=== PATIENT | male | born 1990 | race Caucasian/White ===

== ENCOUNTER 2016-12-10 15:54 | Emergency (ER) | payer MEDICAID ==
[~2016-12-10] VITALS: Ht 175.3 cm; Wt 72.6 kg
[~2016-12-10 15:54] MED LIST: ALBUTEROL2 PUFFS/17 IN; AMOXICILLIN 25250 MG PO; AMOXICOT250 MG PO; APAP/BUTALBITAL1 TA1 PO; BENTYL10 M1 PO; CLINDAMYCIN300 MG PO; IBU-8800 MG PO; IBUPROFEN400 MG PO; KEFLEX 500MG.500 MG PO; MEDROL 4MG. DOSE4 MG PO; NOMEDS *; NOMEDS XX; NORCO 325 MG-51 TAB PO; PHENERGAN 25MG.25 M1 PO; PHENERGAN25 M3 PO; PREDNISONE 20MG20 MG PO; PRILOSEC40 MG PO; SEPTRA DS 800 M1 TAB PO; TESSALON PERLE100 MG PO; ULTRAM50 MG PO; VIBRAMYCIN 100100 MG PO; VICODIN 5/500 T1 TAB PO; VOLTAREN75 MG PO; ZOFRAN ODT4 MG PO; Zofran4 MG PO
--- OUTSIDE RECORDS SUMMARY | 2016-12-10 16:05 | External Medical Summary Rpt ---
Author Author , [facility] Organization [facility] Address Unknown Phone [email or web address] Care Team Providers Care Final Inspector Shuttle Name Role Phone GUTIERREZ BRO, GUTIERREZ Unavailable Unavailable BRO GUTIERREZ BRO, GUTIERREZ Unavailable Unavailable BRO BEINEKE SUE, BEINEKE Unavailable Unavailable SUE LIAO ALL, LIAO ALL Unavailable Unavailable RADHA DREW T, Unavailable Unavailable RADHA DREW T [facility] Unavailable Unavailable [place], [facility] DEVYN Hua, DEVYN Patel Unavailable Unavailable G DEVYN Hua, DEVYN J Unavailable Unavailable G Amanda SHEPARD, DEVYN, Unavailable Unavailable Amanda Hua CROWJOSE CRI, CROWDY Unavailable Unavailable CRI ALEXA MICAH, Unavailable Unavailable ALEXA MICAH ALEXA MICAH, Unavailable Unavailable ALEXA MICAH ALEXA, BO, Unavailable Unavailable ALEXA, BO [facility], Unavailable Unavailable [facility], Unavailable Unavailable [facility] [place] [facility] [place] KYLE SINDY, KYLE SINDY Unavailable Unavailable [facility], [facility] JR KIRK CHAKRABORTY, Unavailable Unavailable JR KIRK CHARKABORTY, MARS Unavailable Unavailable GALLO MARS GALLO, MARS Unavailable Unavailable GALLO L[facility]SET[facility] TERRAZAS, Unavailable Unavailable [facility] Un[facility], [facility], [facility], [facility] YANG RAN, YANG Unavailable Unavailable RAN YANG RAN, YANG Unavailable Unavailable RAN Amanda Terrazas MD, Unavailable Unavailable Amanda MIRELES SCO, ALINE SCO Unavailable Unavailable AISLINN MIRELES, ALINE, Unavailable Unavailable AISLINN ASHBY, Unavailable Unavailable KASANDRA ASHBY, Unavailable Unavailable PILI ERICKSON Unavailable Unavailable PILI BOUDREAUX JR, WILLIAM Unavailable Unavailable NAYLA Noguera JR, WILLIAM F MOHAMED ALFARIS MD, Unavailable Unavailable KEYON CASH, Unavailable Unavailable SANDEE CASH MULBERRY SINDY, Unavailable Unavailable MULBERRY SINDY SAMPSON R H, Unavailable Unavailable SAMPSON R H SONIA NOVA, Unavailable Unavailable [facility], Unavailable [facility]available [facility], [facility] PETTEY JAM, PETTEY Unavailable Unavailable JAM SCHULSTAD AIYANA, Unavailable Unavailable SCHULSTAD AIYANA SOKAN, SUPRIYA O, Unavailable Unavailable SOKAN, SUPRIYA O [facility] Unavailable Unavailable EMER[facility]Y PH[facility], [facility] ANGELICA JONNATHAN, ANGELICA Unavailable Unavailable JONNATHAN YVONNE JOHNSON, YVONNE Unavailable Unavailable ALEX Reyes MD, Unavailable Unavailable Anjum Reyes MD [facility], Unavailable Unavailable [facility] Unavailable Unavailable Sonia Orozco Unavailable Unavailable Sonia NORRIS MD, III, MD [facility], [facility] Unavailable Unavailable Purpose Continuity of Care Document - 09-03-2008 through 2016 Problems Code Diagnosis DOS Provider Status Z681 BODY MASS 10-11-2016 DEPT FOR INDEX BMI PUBLIC HLTH 19 OR LESS ADULT J101 FLU D/T OTH 07-18-2015 [facility] VIRUS OTH RESP MANIFESTATI ONS J0110 ACUTE 07-13-2015 [facility] FRONTAL [facility] SINUSITIS UNSPECIFIED R300 DYSURIA 07-13-2015 [facility] [id number] COMP 05-12-2015 [facility] REATTACHED [facility] PART UPPER EXTREMITY UNS SIDE J329 CHRONIC 03-30-2015 [facility] SINUSITIS [facility] UNSPECIFIED V5419 AFTERCARE 12-24-2014 [facility] FRACTURE OTHER BONE V5489 OTHER 12-24-2014 [place] [facility] AFTERCARE 92754 CLOSED 12-10-2014 [facility] METACARPAL [facility]ATION BONE SITE UNSPECIFIED V571 OTHER 11-19-2014 [place] [facility] THERAPY 58712 OPEN 11-11-2014 [facility] DISTAL PHALANX OR PHALANGES HAND 8830 OPEN WOUND 11-08-2014 [facility] FINGER [facility] WITHOUT MENTION COMPLICATIO N 99123 CLOS 11-06-2014 [place] [facility] MID/PROX[facility]A [facility] L PHALANX/PHA LANG HAND 37811 CLOSED 11-06-2014 [facility] MED[facility] DISTAL IMAGING ASS PHALANX OR PHALANGES HAND 8860 TRAUMATIC 11-06-2014 [facility] PHYSICIANS, FINGER PLLC WITHOUT MENTION COMP 8861 TRAUMATIC 11-06-2014 [facility] OF OTHER INC FINGER COMPLICATED 05426 PAIN IN 11-04-2014 [facility] SHOULDER REGION 7937 NONSPC ABN 11-04-2014 [facility] EXM MUSCULSKELT L SYS 03355 OT NONSPC 11-04-2014 [place] [facility] FINDNG SERV RAD&OTH EXM [facility]OUNDATION BODY STRUCTURE 8406 SUPRASPINAT 11-04-2014 [facility] SPRAIN SERV AND STRAIN FOUNDATION 8407 SUPERIOR 11-04-2014 [facility] LABRUM LESIONS 8408 SPRAIN&STRA 11-04-2014 [facility] IN OT SPEC SERV SITES [facility] SHOULDER&UP PER ARM 58308 OTHER 10-05-2014 [place] [facility] DISORDERS SERV OF BONE AND FOUNDATION CARTILAGE OTHER 73036 ABDOMINAL 03-31-2014 [place] [facility], [facility]ICAL UNSPECIFIED IMAGING ASS SITE 8489 UNSPECIFIED 03-09-2014 [facility] SITE OF ASSOCIATES SPRAIN AND STRAIN 88044 ABDOMINAL 03-08-2014 [facility] OTHER N EMERGENCY SPECIFIED PHYS SITE 8488 OTHER 03-08-2014 [facility] SPECIFIED N EMERGENCY SITES OF PHYS SPRAINS AND STRAINS E9288 OTHER 03-08-2014 [facility] ACCIDENT N EMERGENCY PHYS 4739 UNSPECIFIED 02-15-2014 [facility] SINUSITIS N EMERGENCY PHYS 490 BRONCHITIS 02-15-2014 [facility] NOT N EMERGENCY SPECIFIED PHYS ACUTE OR CHRONIC 53889 SHORTNESS 02-15-2014 [facility] 34324 WHEEZING 02-15-2014 [facility] N EMERGENCY PHYS 5224 ACUTE 01-06-2014 [facility] APICAL N EMERGENCY PERIODONTIT PHYS IS OF PULPAL ORIGIN 5259 UNSPECIFIED 01-06-2014 [facility] DISORDER N EMERGENCY TEETH&SUPPO PHYS RTING STRUCTURES 95999 JAW PAIN 01-06-2014 [facility] N EMERGENCY PHYS 7242 LUMBAGO 12-09-2013 DEVYN Hua 2243 BENIGN 10-28-2013 [facility] NEOPLASM OF GRE CONJUNCTIVA 79424 UNSPECIFIED 09-30-2013 [facility] SUBJECTIVE GRE VISUAL DISTURBANCE 99810 OTHER 09-30-2013 [facility] VISUAL GRE DISTORTIONS AND ENTOPTIC PHENOMENA 24274 OTHER 09-30-2013 K[facility] VITREOUS GRE OPACITIES 5409 ACUTE 04-28-2014 [facility] WITHOUT INC MENTION PERITONITIS 541 APPENDICITI 09-07-2013 ALEXEIMADDIE AIYANA Lisa UNQUALIFIED 28847 OTHER 09-07-2013 ALEXA ASCITES MICAH 5400 ACUTE 09-06-2013 CELIA RAN APPENDICITI S WITH GENERALIZED PERITONITIS 20105 ABDOMINAL 09-06-2013 MARS GALLO PAIN RIGHT LOWER QUADRANT 5589 OTH&UNSPEC 08-31-2013 GUTIERREZ BRO NONINFECTIO US GASTROENTER ITIS&COLITI S 98339 ABDOMINAL 08-31-2013 GUTIERREZ BRO PAIN, EPIGASTRIC 8470 NECK SPRAIN 05-17-2013 [facility] AND STRAIN [facility] 8500 CONCUSSION 05-17-2013 [facility] WITH NO [facility] LOSS OF INC [place]OUSNE SS 9221 CONTUSION 05-17-2013 [facility] OF CHEST [facility] WALL INC 305.1 305.1 12-22-2012 [place] TOBACCO USE [facility] 530.81 530.81 12-22-2012 [place] ESOPHAGEAL [facility] REFLUX [facility] 682.2 682.2 12-22-2012 [place] CELLULITIS [facility] OF TRUNK [facility] 682.3 682.3 11-11-2012 [place] CELLULITIS [facility] 709.09 709.09 11-11-2012 [place] OTHER [facility] DYSCHROMIA [facility] 787.03 787.03 10-20-2012 [place] VOMITING [facility] 787.91 787.91 08-04-2012 [place] DIARRHEA [facility] 789.06 789.06 08-04-2012 [place] ABDOMINAL [facility], [facility] EPIGASTRIC 13656 DYSFUNCTION 06-14-2009 ROHINI OF SONIA Nielsen EUSTACHIAN TUBE 65536 SIMPLE/UNSP 05-24-2009 ROHINI ECIFIED SONIA Nielsen CHRONIC SEROUS OTITIS MEDIA 80594 BRAWEVIE 04-13-2009 KANIKA, SCLERITIS PILI 1903 MALIGNANT 03-23-2009 KANIKA NEOPLASM OF PILI CONJUNCTIVA 7850 UNSPECIFIED 03-16-2009 [facility] TACHYCARDIA [facility]OUND[facility] 51776 OTHER AND 03-07-2009 [facility] UNSPECIFIED [facility]OCIATES CONJUNCTIVI TIS 4660 ACUTE 02-16-2009 [facility] BRONCHITIS [facility] 5110 PLEURISY 02-16-2009 KASANDR[facility] WITHOUT EMERGENCY MENTION SERVICES EFFUS/CURRE ASSOCIATES NT TB 7862 COUGH 02-16-2009 [facility] 64023 PAINFUL 01-31-2009 [place] [facility] Allergies, Adverse Reactions, Alerts Type Drug Allergy Adverse Reaction to Substance Substance Reaction Severity No Known Allergies - Unknown Mild Nka Trimethoprim NA-NAUSEA/VOMITING Unknown Sulfamethoxazole NA-NAUSEA/VOMITING Unknown Medications Na ND Rx Da Fi Fi Am Da Di Ph RX Ph St me C No te ll ll ou ys ag ar # ys at rm s nt no ma ic us Or Da si cy ia de te s n re d DI 00 10 0 No PH 40 -2 EN 92 5- Lo HY [address] 03 13 er AM 1 IN Ac E ti 50 ve MG /M L SY RN G SO 00 10 0 No DI 40 -2 UM 97 5- Lo 98 20 ng CH 30 13 er LO 9 RI Ac DE ti ve 0. 9% SO OLLIE TI ON KE 00 10 0 No TO 40 -2 RO 93 5- Lo LA 79 20 ng C 50 13 er 30 1 Ac MG ti /M ve L AL ON 00 10 0 No DA 64 -2 NS 16 5- Lo ET 08 20 ng RO 02 13 er N 5 HC Ac L ti 4 ve MG /2 ML AL De 00 10 0 No xa 51 -2 me 74 5- Lo th 90 20 ng as 12 13 er on 5 e Ac 4M ti G/ ve Ml Sd v LI 00 08 0 No DO 40 -1 CA 93 2- Lo IN 17 20 ng E 80 13 er 1% 1 -E Ac PI ti ve 1: 10 0, 00 0 CE 62 07 0 No PH 75 -0 AL 60 2- Lo EX 29 20 ng IN 48 13 er 8 50 Ac 0 ti MG ve CA PS UL E LI 63 07 0 No DO 32 -0 CA 30 2- Lo IN 20 20 ng E 11 13 er HC 0 L Ac 1% ti ve AL SAGASTUME 51 07 0 No LF 07 -0 AM 90 2- Lo ET 12 20 ng HO 82 13 er XA 0 ZO Ac LE ti -T ve MP DS TA BL ET AK 51 06 0 No OM 07 -1 ET 90 0- Lo KIRBY 89 20 ng ZI 52 13 er NE 0 Ac 25 ti ve MG TA BL ET AK 00 03 0 No OM 64 -2 ET 11 5- Lo KIRBY 49 20 ng ZI 53 13 er NE 5 Ac 25 ti ve MG /M L AM PU L SO 00 03 0 No DI 40 -2 UM 97 5- Lo 98 20 ng CH 30 13 er LO 9 RI Ac DE ti ve 0. 9% SO OLLIE TI ON ON 00 03 0 No DA 64 -2 NS 16 5- Lo ET 08 20 ng RO 02 13 er N 5 HC Ac L ti 4 ve MG /2 ML AL Sa 63 03 0 No li 80 -2 ne 70 5- Lo 10 20 ng Fl 07 13 er us 5 h Ac 10 ti ML ve Sy ri ng e 00 01 02 00 60 30 EA 16 LI Ac 09 -2 -[address] 09 VA ti 51 5- 1- 00 SI 48 S ve 29 20 20 DE IR 00 10 10 AK 6 PH LI AR S MA C CY OF CY NT HI AN A 00 01 02 00 30 30 EA 16 LI Ac 00 -2 -[address] 09 VA ti 60 5- 1- 00 SI 49 S ve 11 20 20 DE IR 73 10 10 AK 1 PH LI AR S MA C CY OF CY NT HI AN A 59 01 02 00 8. 15 EA 16 LI Ac 31 -2 -[address] 09 VA ti 00 5- 1- 0 SI 47 S ve 57 20 20 DE IR 92 10 10 AK 0 PH LI AR S MA C CY OF CY NT HI AN A PA 00 01 02 00 2. 10 EA 16 LI Ac TA 06 -2 -[address] 09 VA ti DA 50 5- 1- 0 SI 51 S ve Y 27 20 20 DE IR 0. 22 10 10 AK 2% 5 PH LI AR S EY MA C E CY DR OP OF S CY NT HI AN A NA 00 01 02 00 17 17 EA 16 LI Ac SO 08 -2 -[address] 09 VA ti NE 51 5- 1- 00 SI 50 S ve X 28 20 20 DE IR 50 80 10 10 AK 1 PH LI MC AR S G MA C NA CY SA L OF SP CY RA NT Y HI AN A 68 01 01 00 20 10 EA 15 PA Ac 82 -1 -[address] 93 RE ti 00 2- 8- 00 SI 41 LL ve 06 20 20 DE 30 10 10 WI 9 PH LL AR IA MA M CY M OF CY NT HI AN A 60 12 01 00 18 5 EA 15 NO Ac 25 -2 -[address] 76 RF ti 80 9- 4- 00 SI 16 LE ve 23 20 20 0 DE ET 91 09 10 R 6 PH AR HE MA NR CY Y OF CY NT HI AN A AM 00 12 01 00 28 14 EA 15 NO Ac OX 09 -2 -[address] 76 RF ti -C 32 9- 4- 00 SI 15 LE ve LA 27 20 20 DE ET V 53 09 10 R 87 4 PH 5- AR HE 12 MA NR 5 CY Y MG OF TA CY BL NT ET HI AN A 00 11 11 00 12 3 EA 14 SO Ac 40 -0 -[address] 96 KA ti 62 3- 9- 00 SI 91 N ve 04 20 20 DE BA 11 09 09 BA 0 PH TU AR ND MA E CY O OF CY NT HI AN A SAGASTUME 24 10 11 00 15 7 EA 14 CO Ac LF 20 -2 -[address] 86 OP ti AC 80 6- 5- 00 SI 17 ER ve ET 67 20 20 DE AM 00 09 09 KRISTINE ID 4 PH HN E AR G 10 MA % CY EY E OF DR CY OP NT S HI AN A ME 00 10 10 00 21 6 EA 14 GA Ac TH 78 -0 -[address] 59 IN ti YL 15 7- 2- 00 SI 70 EY ve AK 02 20 20 DE ED 20 09 09 IA NI 7 PH CH SO AR AE LO MA L NE CY S 4 OF MG CY NT DO HI SE AN PK A DO 53 10 10 00 14 7 EA 14 GA Ac XY 48 -0 -[address] 59 IN ti CY 90 7- 2- 00 SI 69 EY ve CL 11 20 20 DE IN 90 09 09 IA E 5 PH CH HY AR AE CL MA L AT CY S E 10 OF 0 CY MG NT HI CA AN P A 00 10 10 00 9. 3 EA 14 GA Ac 25 -0 -[address] 59 IN ti 83 7- 2- 0 SI 68 EY ve 65 20 20 DE 40 09 09 IA 1 PH CH AR AE MA L CY S OF CY NT HI AN A IB 53 09 10 00 15 5 EA 14 SO Ac UP 74 -2 -[address] 34 KA ti RO 60 1- 8- 00 SI 85 N ve FE 46 20 20 DE BA N 60 09 09 BA 80 5 PH TU 0 AR ND MG MA E CY O TA BL OF ET CY NT HI AN A Immunization Name Date Rout CVX Reac Dose Comm Prov Is Faci e tion ent ider Refu lity Give sed n TDAP 06-2 115 ELIZA No ELIZA 7-20 FRANK FRANK VACC 15 MEM [facility] INE 7 HOSP HOSP YRS/ INC INC > IM Vital Signs 03-06-2013 13:02 Name Value Interpretat Reference Comment ion Range Body 98.3 [degF] Temperature BP 61 mm[Hg] Diastolic BP Systolic 109 mm[Hg] Heart 76 /min Rate/Pulse O2% 100 % Respiratory 20 /min Rate 03-06-2013 12:15 Name Value Interpretat Reference Comment ion Range BP 67 mm[Hg] Diastolic BP Systolic 124 mm[Hg] Heart 76 /min Rate/Pulse O2% 100 % Respiratory 20 /min Rate 12-22-2012 13:17 Name Value Interpretat Reference Comment ion Range Body 99 [degF] Temperature BP 77 mm[Hg] Diastolic BP Systolic 117 mm[Hg] Heart 128 /min Rate/Pulse O2% 98 % Respiratory 18 /min Rate 12-22-2012 13:00 Name Value Interpretat Reference Comment ion Range BP 64 mm[Hg] Diastolic BP Systolic 122 mm[Hg] Heart 120 /min Rate/Pulse O2% 98 % Respiratory 18 /min Rate 11-11-2012 02:32 Name Value Interpretat Reference Comment ion Range BP 78 mm[Hg] Diastolic BP Systolic 112 mm[Hg] Heart 83 /min Rate/Pulse O2% 99 % Respiratory 20 /min Rate 10-20-2012 18:50 Name Value Interpretat Reference Comment ion Range Body 99.6 [degF] Temperature BP 70 mm[Hg] Diastolic BP Systolic 105 mm[Hg] Heart 76 /min Rate/Pulse O2% 98 % Respiratory 18 /min Rate 10-20-2012 18:49 Name Value Interpretat Reference Comment ion Range Body 99.6 [degF] Temperature BP 70 mm[Hg] Diastolic BP Systolic 105 mm[Hg] Heart 76 /min Rate/Pulse O2% 98 % Respiratory 18 /min Rate 08-04-2012 23:37 Name Value Interpretat Reference Comment ion Range BP 76 mm[Hg] Diastolic BP Systolic 124 mm[Hg] Heart 74 /min Rate/Pulse O2% 98 % Respiratory 16 /min Rate 08-04-2012 22:01 Name Value Interpretat Reference Comment ion Range Body 98.8 [degF] Temperature BP 85 mm[Hg] Diastolic BP Systolic 146 mm[Hg] Heart 92 /min Rate/Pulse O2% 98 % Respiratory 16 /min Rate Results Labs Lab Lab Date Result Refere Interp Status Commen Order Detail nces retati t Range on URINALYSIS/COMPLETE (08-04-2012 21:50) URINE 03-25-2 YELLOW YELLOW complet COLOR 013 ed 21:50 URINE 25-2 CLEAR CLEAR complet APPEARA 013 ed NCE 21:50 URINE 25-2 NEGATIV NEG complet GLUCOSE 013 E ed - 21:50 DIPSTIC K URINE 0325-2 NEGATIV NEG complet BILIRUB 013 E ed IN - 21:50 DIPSTIC K URINE -25-2 NEGATIV NEG complet KETONE 013 E mg/dL ed 21:50 URINE 25-2 Greater 1.005-1 complet SPECIFI 013 than .030 ed C 21:50 or GRAVITY equal to 1.030 URINE 25-2 NEGATIV NEG complet BLOOD 013 E ed 21:50 URINE 25-2 6.0 UNK 5.0-8.5 complet PH 013 ed 21:50 URINE 25-2 NEGATIV NEG complet PROTEIN 013 E mg/dL ed - 21:50 DIPSTIC K URINE 25-2 0.2 NEG complet UROBILI 013 E.U./dL ed NOGEN - 21:50 DIPSTIC K URINE 25-2 NEGATIV NEG complet NITRATE 013 E ed - 21:50 DIPSTIC K URINE -25-2 NEGATIV NEG complet LEUK 013 E ed ESTERAS 21:50 E URINE 08-04-2 OCC 0 complet RBC 013 rbc/hpf ed 21:50 URINE 25-2 OCC O complet WBC 013 wbc/hpf ed 21:50 URINE 25-2 OCC OCC complet SQUAMOU 013 #/hpf ed S CELLS 21:50 COMPREHENSIVE METABOLIC PANEL (08-04-2012 21:45) Glucose 08-04-2 122 74-106 complet 013 mg/dL ed Bld-mCn 21:45 c BUN 08-04-2 13 7-18 complet Bld-mCn 013 mg/dL ed c 21:45 Creat 08-04-2 1.1 0.8-1.3 complet SerPl-m 013 mg/dL ed Cnc 21:45 GFR 08-04-2 84 Greater complet (ESTIMA 013 ML/MIN than ed ALVA) 21:45 60 Sodium 08-04-2 139 136-145 complet SerPl-s 013 mmoL/L ed Cnc 21:45 Potassi 08-04-2 3.7 3.5-5.1 complet um 013 mmoL/L ed SerPl-s 21:45 Cnc Chlorid 08-04-2 103 98-107 complet e 013 mmoL/L ed SerPl-s 21:45 Cnc CO2 25-2 27 21.0-32 complet SerPl-s 013 mmoL/L .0 ed Cnc 21:45 Calcium -25-2 9.1 8.5-10. complet 013 mg/dL 1 ed SerPl-m 21:45 Cnc Prot 25-2 7.8 6.4-8.2 complet SerPl-m 013 gm/dL ed Cnc 21:45 Albumin -25-2 4.7 3.4-5.0 complet 013 gm/dL ed SerPl-m 21:45 Cnc Globuli 08-04-2 3.1 1.3-3.2 complet n 013 gm/dL ed Ser-mCn 21:45 c Albumin 08-04-2 1.5 UNK 1.1-1.8 complet /Glob 013 ed SerPl-m 21:45 Rto Bilirub 08-04-2 0.3 0.2-1.0 complet 013 mg/dL ed SerPl-m 21:45 Cnc AST 25-2 17 U/L 15-37 complet SerPl-c 013 ed Cnc 21:45 ALT 08-04-2 26 U/L 30-65 complet SerPl-c 013 ed Cnc 21:45 ALP 08-04-2 103 U/L 50-136 complet SerPl-c 013 ed Cnc 21:45 CBC with AUTO DIFF (08-04-2012 21:45) WBC # 25-2 6.6 4.8-10. complet Bld 013 K/MM3 8 ed Auto 21:45 RBC # 0325-2 4.91 4.6-6.2 complet Bld 013 M/mm3 ed Auto 21:45 Hgb -25-2 15.1 14.1-18 complet Bld-mCn 013 g/dL .0 ed c 21:45 Hct Fr 08-04-2 44.2 % 42.0-52 complet Bld 013 .0 ed 21:45 MCV RBC 25-2 89.9 fl 82.2-97 complet 013 .8 ed 21:45 MCH RBC 25-2 30.8 pg 27-31.2 complet Qn 013 ed Auto 21:45 MEAN 03-25-2 34.3 31.8-35 complet CORPUSC 013 g/dl .4 ed ULAR 21:45 HGB CONC RDW RBC 08-04-2 12.8 % 11.5-17 complet Auto 013 .5 ed 21:45 Platele 25-2 270 142-424 complet t Bld 013 K/mm3 ed Ql 21:45 Manual MEAN 08-04-2 7.4 fl 7.4-10. complet PLATELE 013 4 ed T 21:45 VOLUME Granulo 25-2 44.5 % 37.0-80 complet cytes 013 .0 ed Fr Bld 21:45 Auto LYMPH % 25-2 46.3 % 10-50 complet 013 ed 21:45 Monocyt 25-2 6.0 % 1.7-9.3 complet es Fr 013 ed Bld 21:45 Auto Eosinop 25-2 2.3 % 0.1-12. complet hil Fr 013 0 ed Bld 21:45 Auto Basophi 25-2 0.9 % 0.1-2.0 complet ls Fr 013 ed Bld 21:45 Auto Granulo 25-2 3.0 1.3-8.0 complet cytes # 013 K/mm3 ed Bld 21:45 Auto Lymphoc 25-2 3.1 0.7-4.5 complet ytes Fr 013 K/mm3 ed Bld 21:45 Auto Monocyt -25-2 0.4 0.1-1.0 complet es # 013 K/mm3 ed Bld 21:45 Auto Eosinop -25-2 0.2 0.0-0.4 complet hil # 013 K/mm3 ed Bld 21:45 Auto Basophi 25-2 0.1 0-0.2 complet ls # 013 K/MM3 ed Bld 21:45 Auto Procedures Procedure DOS Code Location Performer Comment IAADIADOO 30917 FAMILY MULBERRY 6 CARE SINDY INFLUENZA ASSOCIATE S CULTURE 60099 COMBINED COMBINED BACTERIAL 6 PHYSICIAN PHYSICIAN S [place] QUANTTATI VE COLONY COUNT URINE BLOOD 18105 FAMILY CROWDY COUNT 6 CARE CRI COMPLETE ASSOCIATE AUTO&AUTO S DIFRNTL WBC COLLECTIO 95267 FAMILY CROWDY N 6 CARE CRI CAPILLARY ASSOCIATE BLOOD S SPECIMEN RADEX 19903 RAGHU VASQUEZ HAND 5 MEDICAL Y JUS MINIMUM 3 SERV VIEWS FOUNDATIO N RADEX 57195 [facility] HAND 5 Y Y MINIMUM 3 HOSPITAL HOSPITAL VIEWS PHYSICAL 09048 [facility] THERAPY 5 Y Y EVALUATIO [facility] N ANCHOR/SC C1713 [facility] REW 5 Y Y OPPOSING [facility] BN-TO-BN/ SOFT TISSUE-TO -BN INJECTION J0690 [facility] 5 Y Y CEFAZOLIN [facility] SODIUM 500 MG INJECTION J1170 [facility] 5 Y Y HYDROMORP [facility] MAXWELL UP TO 4 MG INJECTION J2405 [facility] 5 [facility] PER 1 MG INJECTION J2765 [facility] 5 [facility] AM[facility]CL UP TO 10 MG INJECTION J2250 [facility] 5 Y Y MIDAZOLAM [facility] HCL PER 1 MG FLUOROSCO 83339 [facility] PY SPX UP 5 Y Y TO 1 [facility] HOUR PHYS/QHP TIME INJECTION J3010 [facility] FENTANYL 5 Y Y CITRATE [facility] 0.1 MG INFUSION J7030 [facility] NORMAL 5 Y Y SALINE [facility] SOLUTION 1000 CC PRQ SKEL 64001 [facility] FIXJ DSTL 5 Y Y PHLNGL [facility] FX FNGR/THMB EA ANES 84363 [place] KYLE SINDY RADIUS 5 MEDICAL ULNA SERVICES WRIST/BUTLER D BONES CLOSED PX INJECTION J1885 [facility] 5 Y Y KETOROLAC [facility] TROMETHAM INE PER 15 MG INJECTION J2704 [facility] PROPOFOL 5 Y Y 10 MG [facility] [place] [address] [facility] INFUSION 5 [facility] THER INC INC PROPH ADDL SEQUENTIA L TO 1 HR RADEX 08966 JENNIFER LIAO ALL HAND 5 MEDICAL MINIMUM 3 IMAGING VIEWS ASS IM ADM 23228 [facility] PRQ ID 5 [facility] SUBQ/IM INC INC NJXS 1 VACCINE TDAP 37562 [facility] VACCINE 7 5 [facility] YRS/> [place] [address] [facility] INFUSION 5 [facility] THERAPY/P INC INC ROPHYLAXI S /DX 1ST TO 1 HR THERAPEUT 77910 [facility] IC 5 [facility] INJECTION INC INC [place] [address] [facility] UPPER 5 Y Y EXTREMITY [facility] W/O CONTRAST MATRL RADEX 65257 [place] ANGELICA SHOULDER 5 MEDICAL JONNATHAN COMPLETE SERV MINIMUM [address] [place] [address] [place] A[place] ABDOMEN & 4 MEDICAL MICAH PELVIS IMAGING W/[place] [address] [place] BEINEKE ABDOMEN & 4 MEDICAL SUE PELVIS IMAGING W/O ASS CONTRAST MATERIAL RADIOLOGI 84993 [place] A[place] C EXAM 4 MEDICAL MICAH CHEST 2 IMAGING VIEWS ASS FRONTAL&L ATERAL FUNDUS 73741 [facility] PHOTOGRAP 4 HY W/INTERPR ETATION & REPORT VISUAL 58560 [facility] FIELD XM 4 GRE GRE UNI/BI W/INTERP EXTENDED EXAM OPHTH 65854 [facility] MEDICAL 4 GRE GRE XM&EVAL COMPRE NEW PT 1/> [place] [address] ALEXA ALEXA ABDOMEN & 4 MICAH MICAH PELVIS W/O CONTRAST MATERIAL URNLS DIP 74668 [facility] STICK/TAB INC INC [place] [address] [facility] LIPASE 4 [facility] INC INC INJECTION J2405 [facility] ONDANSETR INC INC ON HCL PER 1 MG COMPREHEN 82955 [facility] SIVE 4 [facility] [place] [address] [facility] AMYLASE 4 [facility] INC INC ANESTHESI 68561 COMMUNITY YVONNE A 4 ANESTH ALEX INTRAPERI OF THE TONEAL BLUE LOWER ABD W/LAPS NOS BLOOD 95590 [facility] COUNT 4 [facility] COMPLETE INC INC AUTO&AUTO DIFRNTL WBC LAPAROSCO 36916 [facility] PIC 4 [facility] APPENDECT INC INC STEFFANY LEVEL III 33732 YANG YANG SURG 4 [facility] PATHOLOGY GROSS&GALLO ROSCOPIC EXAM RADEX ABD 70486 ALEXA ALEXA COMPL 4 MICAH MICAH AQT ABD W/S/E/D V[place] [address] [place] [address] [facility] CERVICAL 4 [facility] SPINE W/O INC INC CONTRAST MATERIAL UNLISTED 20575 [facility] PROCEDURE 4 [facility] INC INC CASTING/[place] [address] [facility] HEAD/BRAI 4 [facility] N W/O INC INC CONTRAST MATERIAL RADIOLOGI 82852 [facility] C EXAM 4 [facility] CHEST 2 INC INC VIEWS FRONTAL&L ATERAL COMPRE 13763 ROHINI NOVA, AUDIOMETR 0 SONIA Nielsen Y THRESHOLD EVAL SP RECOGNIJ TYMPANOME 99394 ROHINI NOVA, TRY 0 SONIA Nielsen DETERMINA 49141 KANIKA BOUDREAUX TION 9 PILI ALEJANDRE REFRACTIV E STATE DETERMINA 39593 KANIKA BOUDREAUX TION 9 PILI ALEJANDRE REFRACTIV E STATE ECG 33060 RAGHU CUELLARVIKI, ROUTINE 9 MEDICAL RADHA T ECG SERV W/LEAST FOUNDATIO 12 LDS W/I&R RADIOLOGI 74204 Cristina ADAN EXAM 9 MEDICAL BO CHEST 2 IMAGING VIEWS ASSOCIATE FRONTAL&L S ATERAL IAADI 74713 [facility] INFLUENZA 9 [facility] B VIRUS INC INC IAADI 70269 [facility] INFFLUENZ 9 [facility] A A VIRUS INC INC RADEX 44658 [facility] RIBS UNI 9 [facility] W/POSTERO INC INC ANT CH MINIMUM 3 VIEWS ECG 69709 [facility] ROUTINE 9 [facility] ECG INC INC W/LEAST 12 LDS TRCG ONLY W/O I&R ECG [address] QUANG VILLARJOHNMIHudson ROUTINE 9 [facility] SONIA Poornima W/LEAST PROF SERV 12 LDS I&R ONLY RHYTHM [id number] QUANG DEL RIO ECG 1-3 9 [facility] LEADS INC INC TRACING ONLY W/O I&R INJECTION J2250 [facility] 9 Y Y [place] [facility] HCL PER 1 MG INJECTION J0690 [facility] 9 Y Y CEFAZOLIN [facility] SODIUM 500 MG INJECTION J1100 [facility] 9 Y Y DEXAMETHO [facility] SONE SODIUM PHOSPHATE 1 MG INJECTION J2795 [facility] 9 Y Y ROPIVACAI [facility] NE HYDROCHLO RIDE 1 MG RINGERS J7120 [facility] 9 Y Y INFUSION [facility] UP TO 1000 CC ARTHROSCO 14142 [facility] PY 9 Y Y SHOULDER [facility] SURGICAL REPAIR SLAP LESION INJECTION J0170 [facility] 9 Y Y ADRENALIN [facility] EPINEPHRI NE UP 1 ML AMPULE INJECTION J2405 [facility] 9 Y Y ONDANSETR [facility] ON HCL PER 1 MG INJECTION J1885 [facility] 9 Y Y KETOROLAC [facility] TROMETHAM INE PER 15 MG INJECTION J3010 [facility] FENTANYL 9 Y Y CITRATE [facility] 0.1 MG OTHER 86.04 KEYON SKIN & ALFARIS SUBQ I MD [place] Encounters Encounter Start End Date Code Location Performer Type Date OFFICE 64669 [facility] MULBERRY OUTPATIEN 6 6 CARE SINDY T VISIT ASSOCIATE 15 S MINUTES OFFICE 89837 [facility] CROWDY OUTPATIEN 6 6 CARE CRI T VISIT ASSOCIATE 15 S MINUTES OFFICE 78671 [facility] CROWDY OUTPATIEN 5 5 CARE CRI T VISIT ASSOCIATE 15 S MINUTES OFFICE 95072 [facility] MULBERRY OUTPATIEN 5 5 CARE SINDY T VISIT ASSOCIATE 15 S MINUTES HOSPITAL UNIVERSIT - 5 5 Y [facility] UN[facility] 5 5 Y [facility] UNIVERSIT - 5 5 Y [facility] UNIVERSIT - 5 5 Y [facility] T OFFICE 82698 [facility] 5 5 CARE R H T VISIT ASSOCIATE 15 S MINUTES EMERGENCY 41991 KEYUR CHAKRABORTY, 5 5 PHYSICIAN JR [facility] T VISIT HIGH/URGE NT SEVERITY [facility] QUANG - 5 5 [facility] OUTPATIEN INC T EMERGENCY 88584 [facility] DEPT 5 5 [facility] VISIT INC HIGH SEVERITY& [facility] T OFFICE 07205 [facility] T VISIT SERV 15 FOUNDATIO MINUTES N OFFICE 61415 RAGHU ALINE SCO CONSULTAT 5 5 MEDICAL ION SERV NEW/ESTAB FOUNDATIO PATIENT N 40 MIN OFFICE 85225 [facility] 5 5 PHYSICIAN MARTHA Walker NEW 30 S GROUP MINUTES OFFICE 66422 [facility] 4 4 CARE R H T VISIT ASSOCIATE 15 S MINUTES EMERGENCY 68321 [facility] MARS 4 4 KRISSY GALLO DEPARTMEN EMERGENCY T VISIT PHYS HIGH/URGE NT SEVERITY EMERGENCY 49258 [facility] 4 4 KRISSY DEPARTMEN EMERGENCY T VISIT PHYS MODERATE SEVERITY EMERGENCY 21135 [facility] 4 4 KRISSY GALLO DEPARTMEN EMERGENCY T VISIT PHYS MODERATE SEVERITY OFFICE 99890 DEVYN Patel OUTPATIEN 4 4 G G T VISIT 15 MINUTES OFFICE 87863 KASANDRA SLAUGHTER OUTPATIEN 4 4 GRE GRE T VISIT 15 MINUTES EMERGENCY 94295 [facility] 4 4 [facility] DEPARTMEN INC T VISIT HIGH/URGE NT SEVERITY [facility]OSPITAL QU[facility] - 4 4 [facility] OUTPATIEN INC T EMERGENCY 43894 MARS TERRAZAS DEPT 4 4 GALLO GALLO VISIT HIGH SEVERITY& THREAT FUNCJ EMERGENCY 17670 MATT GUTIERREZ 4 4 [facility] DEPARTMEN T VISIT HIGH/URGE NT SEVERITY EMERGENCY 52709 [facility] 4 4 [facility] DEPARTMEN INC T VISIT MODERATE SEVERITY HOSPITAL QUANG Schaeffer 4 4 [facility] OUTPATIEN INC T Emergency JEANNIE Dailey MD (ER) 3 11:02 3 13:08 [facility] Emergency JEANNIE CHU (ER) 3 12:52 3 13:17 [facility] Emergency JEANNIE Terrazas MD (ER) 3 01:55 3 02:33 [facility] Emergency JEANNIE Reyes MD (ER) 3 18:24 3 18:50 [facility] Emergency JEANNIE Orozco (ER) 3 22:05 3 23:41 [facility] Sonia Gutierrez OFFICE 70866 ROHINI NOVA OUTPATIEN 0 0 SONIA Nielsen T VISIT 15 MINUTES OFFICE 57667 ROHINI NOVA OUTPATIEN 0 0 SONIA Nielsen T VISIT 15 MINUTES OFFICE 47482 KANIKA BOUDREAUX, SHAYNAAT 9 9 PILI MAHONEY NEW/ESTAB PATIENT 80 MIN OFFICE 11941 KANIKA BOUDREAUX CONSULTAT 9 9 PILI MAHONEY NEW/ESTAB PATIENT 80 MIN OFFICE 63834 JIMMY CARRANZA 9 9 MEDICAL RADHA T T VISIT SERV 25 FOUNDATIO MINUTES EMERGENCY 83658 KASANDRA ZENDEJAS, 9 9 EMERGENCY SUPRIYA DEPARTMEN SERVICES O T VISIT HIGH/URGE ASSOCIATE NT S SEVERITY EMERGENCY 05954 [facility] 9 9 [facility] DEPART[facility] INC T VISIT LIMITED/M [facility] QUANG - 9 9 [facility] OUTPATIEN INC T OFFICE 37189 [facility] 9 9 CARE G T VISIT ASSOCIATE 25 S MINUTES OFFICE 87115 JIMMY SHAFER 9 9 MEDICAL AISLINN Winters T VISIT SERV 10 [facility] QUANG - 9 9 [facility] T EMERGENCY 53442 QUANG 9 9 [facility] DEPARTMEN INC T VISIT LOW/MODER SEVERITY EMERGENCY 56970 KASANDRA TERRAZAS, 9 9 EMERGENCY [facility] DEPARTMEN SERVICES T VISIT HIGH/URGE ASSOCIATE NT S SEVERITY HOSPITAL QUANG - 9 9 [facility] T EMERGENCY 83692 QUANG 9 9 [facility] DEPARTMEN INC T VISIT LOW/MODER SEVERITY EMERGENCY 20115 KASANDRA ZENDEJAS, 9 9 EMERGENCY SUPRIYA DEPARTMEN SERVICES O T VISIT HIGH/URGE ASSOCIATE NT S SEVERITY OFFICE 32682 JIMMY SHAFER 9 9 MEDICAL AISLINN [place] T VISIT SERV 10 [facility] UNIVERSIT - 9 9 [facility] T
--- OUTSIDE RECORDS SUMMARY | 2016-12-10 16:05 | External Medical Summary Rpt ---
Author Author , LIDIA Organization [employer] Address Unknown Phone [email or web address] Care Team Providers Care Inspecting Machine Adjuster Name Role Phone GUTIERREZ BRO, GUTIERREZ Unavailable [...] [facility], Unavailable Unavailable DEPT FOR SOCIAL [facility] [place] [place] [facility] [place] KYLE SINDY, KYLE SINDY Unavailable Unavailable [facility], [facility] JR KIRK CHAKRABORTY, Unavailable Unavailable JR KIRK CHAKRABORTY, MARS Unavailable Unavailable GALLO MARS GALLO, MARS Unavailable Unavailable GALLO [facility], Unavailable Unavailable [facility], [facility] Un[facility] Un[facility], [facility] YANG RAN, YANG Unavailable [...] SUPRIYA O, Unavailable Unavailable SOKAN, SUPRIYA O [facility] Unavailable Unavailable EMERGENCY PHYS, [facility] ANGELICA JONNATHAN, ANGELICA Unavailable Unavailable JONNATHAN YVONNE JOHNSON, YVONNE Unavailable Unavailable ALEX Reyes MD, Unavailable Unavailable Anjum Reyes MD [facility], Unavailable Unavailable [facility], [facility] Unavailable Unavailable Sonia Orozco Unavailable Unavailable Sonia NORRIS MD, III, MD [facility], [facility] Unavailable Unavailable Purpose Continuity of Care Document [...] CARE SINUSITIS ASSOCIATES UNSPECIFIED V5419 AFTERCARE 12-24-2014 [facility] FRACTURE OTHER BONE V5489 OTHER 12-24-2014 [facility] AFTERCARE 48193 CLOSED 12-10-2014 [facility] METACARPAL [facility] BONE SITE UNSPECIFIED V571 OTHER 11-19-2014 [facility] THERAPY 83733 OPEN 11-11-2014 [facility] DISTAL PHALANX OR PHALANGES HAND 8830 OPEN WOUND 11-08-2014 [facility] WITHOUT MENTION COMPLICATIO N 52639 CLOS 11-06-2014 [facility] L PHALANX/PHA LANG HAND 02423 CLOSED 11-06-2014 [facility] FRACTURE MEDICAL DISTAL IMAGING ASS PHALANX OR PHALANGES HAND 8860 TRAUMATIC 11-06-2014 [facility] WITHOUT MENTION COMP 8861 TRAUMATIC 11-06-2014 [facility] OF OTHER INC FINGER COMPLICATED 96190 PAIN IN 11-04-2014 [facility] SHOULDER REGION 7937 NONSPC ABN 11-04-2014 [facility] & OTH EXM MUSCULSKELT L SYS 58526 OT NONSPC 11-04-2014 [facility] FINDNG SERV RAD&OTH EXM [facility]OUNDATION BODY STRUCTURE 8406 SUPRASPINAT 11-04-2014 [facility] SPRAIN SERV AND STRAIN [facility]OUND[facility] 8407 SUPERIOR 11-04-2014 [facility] LABRUM LESIONS 8408 SPRAIN&STRA 11-04-2014 [facility] IN OT SPEC SERV SITES [facility] SHOULDER&UP PER ARM 80153 OTHER 10-05-2014 [facility] DISORDERS [facility] OF BONE AND [facility]OUNDATION CARTILAGE OTHER 58768 ABDOMINAL 03-31-2014 [facility], MEDICAL UNSPECIFIED IMAGING ASS SITE 8489 UNSPECIFIED 03-09-2014 [facility] SITE OF ASSOCIATES SPRAIN AND STRAIN 80584 ABDOMINAL 03-08-2014 [facility] N EMERGENCY SPECIFIED PHYS SITE 8488 OTHER 03-08-2014 [facility] SPECIFIED N EMERGENCY SITES OF PHYS SPRAINS AND STRAINS E9288 OTHER 03-08-2014 [facility] ACCIDENT N EMERGENCY PHYS 4739 UNSPECIFIED 02-15-2014 [facility] SINUSITIS N EMERGENCY PHYS 490 BRONCHITIS 02-15-2014 [facility] NOT N EMERGENCY SPECIFIED PHYS ACUTE OR CHRONIC 31442 SHORTNESS 02-15-2014 [facility] MEDICAL IMAGING ASS 05674 WHEEZING 02-15-2014 [facility] N EMERGENCY PHYS 5224 ACUTE 01-06-2014 [facility] APICAL N EMERGENCY PERIODONTIT PHYS IS OF PULPAL ORIGIN 5259 UNSPECIFIED 01-06-2014 [facility] DISORDER N EMERGENCY TEETH&SUPPO PHYS RTING STRUCTURES 80372 JAW PAIN 01-06-2014 [facility] N EMERGENCY PHYS 7242 LUMBAGO 12-09-2013 DEVYN Hua 2243 BENIGN 10-28-2013 K[facility] NEOPLASM OF GRE CONJUNCTIVA 99056 UNSPECIFIED 09-30-2013 K[facility] SUBJECTIVE GRE VISUAL DISTURBANCE 74602 OTHER 09-30-2013 K[facility]AN[facility] VISUAL GRE DISTORTIONS AND ENTOPTIC PHENOMENA 68952 OTHER 09-30-2013 KASANDRA VITREOUS GRE OPACITIES 5409 ACUTE 04-28-2014 [facility] APPENDICITI [facility] WITHOUT INC MENTION PERITONITIS 541 APPENDICITI 09-07-2013 ALEXEIMADDIE AIYANA Lisa UNQUALIFIED 87381 OTHER 09-07-2013 ALEXA ASCITES MICAH 5400 ACUTE 09-06-2013 CELIA RAN APPENDICITI S WITH GENERALIZED PERITONITIS 26032 ABDOMINAL 09-06-2013 MARS GALLO PAIN RIGHT LOWER QUADRANT 5589 OTH&UNSPEC 08-31-2013 GUTIERREZ BRO NONINFECTIO US GASTROENTER ITIS&COLITI S 29575 ABDOMINAL 08-31-2013 GUTIERREZ BRO PAIN, EPIGASTRIC 8470 NECK SPRAIN 05-17-2013 [facility] AND STRAIN [facility] 8500 CONCUSSION 05-17-2013 [facility] WITH NO [facility]OS[facility] LOSS OF INC CONSCIOUSNE SS 9221 CONTUSION 05-17-2013 [facility] OF CHEST [facility] WALL INC 305.1 305.1 12-22-2012 Lilly TOBACCO USE [facility] 530.81 530.81 12-22-2012 Lilly ESOPHAGEAL [facility] REFLUX [facility] 682.2 682.2 12-22-2012 Lilly CELLULITIS [facility] OF TRUNK [facility] 682.3 682.3 11-11-2012 Lilly CELLULITIS [facility] 709.09 709.09 11-11-2012 Lilly OTHER [facility] DYSCHROMIA [facility] 787.03 787.03 10-20-2012 Lilly VOMITING [facility] 787.91 787.91 08-04-2012 Lilly DIARRHEA [facility] 789.06 789.06 08-04-2012 Lilly ABDOMINAL [facility], [facility] EPIGASTRIC 91256 DYSFUNCTION 06-14-2009 ROHINI OF SONIA Nielsen EUSTACHIAN TUBE 68899 SIMPLE/UNSP 05-24-2009 ROHINI ECIFIED SONIA Nielsen CHRONIC SEROUS OTITIS MEDIA 05006 BRAWEVIE 04-13-2009 KANIKA, SCLERITIS PILI 1903 MALIGNANT 03-23-2009 KANIKA NEOPLASM OF PILI CONJUNCTIVA 7850 UNSPECIFIED 03-16-2009 [facility] TACHYCARDIA FOUNDAT[facility] 63603 OTHER AND 03-07-2009 [facility] UNSPECIFIED ASSOCIATES CONJUNCTIVI TIS 4660 ACUTE 02-16-2009 K[facility] BRONCHITIS [facility] 5110 PLEURISY 02-16-2009 KASANDRA WITHOUT EMERGENCY MENTION SERVICES EFFUS/CURRE ASSOCIATES NT TB 7862 COUGH 02-16-2009 [facility] 63132 PAINFUL 01-31-2009 [facility] Allergies, Adverse Reactions, [...] -T ve MP DS TA BL ET KS 51 06 0 No OM 07 -1 ET 90 0- Lo KIRBY 89 20 ng ZI 52 13 er NE 0 Ac 25 ti ve MG TA BL ET KS 00 03 0 No OM 64 -2 [...] 7- 2- 00 SI 70 EY ve KS 02 20 20 DE ED 20 09 09 LA NI 7 PH CH SO AR AE LO MA L NE CY S 4 OF MG CY NT DO HI SE AN PK A DO 53 10 10 00 14 7 EA 14 GA Ac XY 48 -0 -[address] 59 IN ti CY 90 7- 2- 00 SI 69 EY ve CL 11 20 20 DE IN 90 09 09 LA E 5 PH CH HY AR AE CL MA L AT CY S E 10 OF 0 CY MG NT HI CA AN P A 00 10 10 00 9. 3 EA 14 GA Ac 25 -0 -[address] 59 IN ti 83 7- 2- 0 SI 68 EY ve 65 20 20 DE 40 09 09 LA 1 PH CH AR AE MA L [...] Procedure DOS Code Location Performer Comment IAADIADOO 14443 FAMILY MULBERRY 6 CARE SINDY INFLUENZA ASSOCIATE S CULTURE 53107 COMBINED COMBINED BACTERIAL 6 PHYSICIAN PHYSICIAN S LA S LA QUANTTATI VE COLONY COUNT URINE BLOOD 36380 FAMILY CROWDY COUNT 6 CARE CRI COMPLETE ASSOCIATE AUTO&AUTO S DIFRNTL WBC COLLECTIO 10577 FAMILY CROWDY N 6 CARE CRI CAPILLARY ASSOCIATE BLOOD S SPECIMEN RADEX 33761 RAGHU VASQUEZ HAND 5 MEDICAL Y JUS MINIMUM 3 SERV VIEWS FOUNDATIO N RADEX 47495 [facility] HAND 5 Y Y MINIMUM 3 HOSPITAL HOSPITAL VIEWS PHYSICAL 84913 [facility] THERAPY 5 Y Y EVALUATIO [facility] N ANCHOR/SC C1713 [facility] REW 5 Y Y OPPOSING [facility] HOSPITAL BN-TO-BN/ SOFT TISSUE-TO -BN INJECTION J0690 [facility] 5 Y Y CEFAZOLIN [facility] SODIUM 500 MG INJECTION J1170 [facility] 5 Y Y HYDROMORP [facility] MAXWELL UP TO 4 MG INJECTION J2405 [facility] 5 [facility] PER 1 MG INJECTION J2765 [facility] 5 Y [facility] AM[facility] H[facility] UP TO 10 MG INJECTION J2250 [facility] 5 Y Y MIDAZOLAM [facility] HCL PER 1 MG FLUOROSCO 24748 [facility] PY SPX UP 5 Y Y TO 1 [facility] HOSPITAL HOUR PHYS/QHP TIME INJECTION J3010 [facility] FENTANYL 5 Y Y CITRATE [facility] 0.1 MG INFUSION J7030 [facility] NORMAL 5 Y Y SALINE [facility] SOLUTION 1000 CC PRQ SKEL 39698 [facility] FIXJ DSTL 5 Y Y PHLNGL [facility] FX FNGR/THMB EA ANES 62938 [place] KYLE SINDY RADIUS 5 MEDICAL ULNA SERVICES WRIST/BUTLER D BONES CLOSED PX INJECTION J1885 [facility] 5 Y Y KETOROLAC [facility] TROMETHAM INE PER 15 MG INJECTION J2704 [facility] PROPOFOL 5 Y Y 10 MG [facility] [place] [address] [facility] INFUSION 5 [facility] THER INC INC PROPH ADDL SEQUENTIA L TO 1 HR RADEX 30639 JENNIFER LIAO ALL HAND 5 MEDICAL MINIMUM 3 IMAGING VIEWS ASS IM ADM 87320 [facility] PRQ ID 5 [facility] SUBQ/IM INC INC NJXS 1 VACCINE TDAP 86200 [facility] VACCINE 7 5 MEM H[facility] MEM HOSP YRS/> [place] [address] [facility] INFUSION 5 [facility] THERAPY/P INC INC ROPHYLAXI S /DX 1ST TO 1 HR THERAPEUT 56482 [facility] IC 5 [facility] INJECTION INC INC IV PUSH EACH NEW DRUG MRI ANY 40604 [facility] UPPER 5 Y Y EXTREMITY [facility] W/O CONTRAST MATRL RADEX 22011 [place] ANGELICA SHOULDER 5 MEDICAL JONNATHAN COMPLETE SERV MINIMUM [address] [place] [address] [facility] ALEXA ABDOMEN & 4 MEDICAL MICAH PELVIS IMAGING W/[place] [address] [facility]INE BEINEKE ABDOMEN & 4 MEDICAL SUE PELVIS IMAGING W/O ASS CONTRAST MATERIAL RADIOLOGI 42516 [facility] ALEXA C EXAM 4 MEDICAL MICAH CHEST 2 IMAGING VIEWS ASS FRONTAL&L ATERAL FUNDUS 13916 [facility] PHOTOGRAP 4 HY W/INTERPR ETATION & REPORT VISUAL 06892 [facility] FIELD XM 4 GRE GRE UNI/BI W/INTERP EXTENDED EXAM OPHTH 58590 [facility] MEDICAL 4 GRE GRE XM&EVAL COMPRE NEW PT 1/> [place] [address] ALEXA ALEXA ABDOMEN & 4 MICAH MICAH PELVIS W/O CONTRAST MATERIAL URNLS DIP 62044 [facility] 4 [facility] STICK/TAB INC INC [place] [address] [facility] LIPASE 4 [facility] INC INC INJECTION J2405 [facility] 4 [facility] ONDANSETR INC INC ON HCL PER 1 MG COMPREHEN 89685 [facility] SIVE 4 [facility] [place] [address] [facility] R[facility] AMYLASE 4 [facility] H[facility]OS[facility] INC INC ANESTHESI 29861 COMMUNITY YVONNE A 4 ANESTH ALEX INTRAPERI OF THE TONEAL BLUE LOWER ABD W/LAPS NOS BLOOD 17477 [facility] COUNT 4 [facility] COMPLETE INC INC AUTO&AUTO DIFRNTL WBC LAPAROSCO 08850 [facility] PIC 4 [facility] APPENDECT INC INC STEFFANY LEVEL III 17910 [facility] Y[facility] SURG 4 [facility] GROSS&GALLO ROSCOPIC EXAM RADEX ABD 52100 ALEXA ALEXA COMPL 4 MICAH MICAH AQT ABD W/S/E/D [address] [address] [place] [address] [facility] CERVICAL 4 [facility] SPINE W/O INC INC CONTRAST MATERIAL UNLISTED 84131 [facility] PROCEDURE 4 [facility] INC INC CASTING/[place] [address] [facility] HEAD/BRAI 4 [facility] N W/O INC INC CONTRAST MATERIAL RADIOLOGI 27489 [facility] C EXAM 4 [facility] CHEST 2 INC INC VIEWS FRONTAL&L ATERAL COMPRE 60451 ROHINI NOVA, AUDIOMETR 0 SONIA Nielsen Y THRESHOLD EVAL SP RECOGNIJ TYMPANOME 69704 ROHINI NOVA, TRY 0 SONIA Nielsen DETERMINA 92760 KANIKA BOUDREAUX TION 9 PILI ALEJANDRE REFRACTIV E STATE DETERMINA 82376 KANIKA BOUDREAUX TION 9 PILI ALEJANDRE REFRACTIV E STATE ECG 06535 RAGHU CUELLARVIKI, ROUTINE 9 MEDICAL RADHA T ECG SERV W/LEAST FOUNDATIO 12 LDS W/I&R RADIOLOGI 28654 Cristina ADAN EXAM 9 MEDICAL BO CHEST 2 IMAGING VIEWS ASSOCIATE FRONTAL&L S ATERAL IAADI 39326 [facility] INFLUENZA 9 [facility] B VIRUS INC INC IAADI 84576 [facility] INFFLUENZ 9 [facility] A A VIRUS INC INC RADEX 53073 [facility] RIBS UNI 9 [facility] W/POSTERO INC INC ANT CH MINIMUM 3 VIEWS ECG 48763 [facility] ROUTINE 9 [facility] ECG INC INC W/LEAST 12 LDS TRCG ONLY W/O I&R ECG 22636 [facility] VILLARJOHNMIHudson ROUTINE 9 [facility] Poornima W/LEAST PROF SERV 12 LDS I&R ONLY RHYTHM 17784 [facility] ECG 1-3 9 MEM H[facility] LEADS INC INC TRACING ONLY W/O I&R INJECTION J2250 [facility] 9 Y Y MIDAZOLAM [facility] HOSPITAL HCL PER 1 MG INJECTION J0690 [facility] 9 Y Y CEFAZOLIN [facility] SODIUM 500 MG INJECTION J1100 [facility] 9 Y Y DEXAMETHO [facility] SONE SODIUM PHOSPHATE 1 MG INJECTION J2795 [facility] 9 Y Y ROPIVACAI [facility] NE HYDROCHLO RIDE 1 MG RINGERS J7120 [facility] 9 Y Y INFUSION [facility] HOSPITAL UP TO 1000 CC ARTHROSCO 19114 [facility] PY 9 Y Y SHOULDER [facility] SURGICAL REPAIR SLAP LESION INJECTION J0170 [facility] 9 Y Y ADRENALIN [facility] EPINEPHRI NE UP 1 ML AMPULE INJECTION J2405 [facility] 9 Y Y ONDANSETR [facility] ON HCL PER 1 MG INJECTION J1885 [facility] 9 Y Y KETOROLAC [facility] TROMETHAM INE PER 15 MG INJECTION J3010 [facility] FENTANYL 9 Y Y CITRATE [facility] 0.1 MG OTHER 86.04 KEYON SKIN & ALFARIS SUBQ I MD Winters Encounters Encounter Start End Date Code Location Performer Type Date OFFICE 99827 [facility] MULBERRY OUTPATIEN 6 6 CARE SINDY T VISIT ASSOCIATE 15 S MINUTES OFFICE 42268 [facility] CROWDY OUTPATIEN 6 6 CARE CRI T VISIT ASSOCIATE 15 S MINUTES OFFICE 41470 [facility] CROWDY OUTPATIEN 5 5 CARE CRI T VISIT ASSOCIATE 15 S MINUTES OFFICE 90526 [facility] OUTPATIEN 5 5 CARE SINDY T VISIT ASSOCIATE 15 S MINUTES HOSPITAL UNIVERSIT - 5 5 Y [facility] UNIVERSIT - 5 5 Y [facility] UNIVERSIT - [address] [facility] UNIVERSIT [facility] 5 5 Y [facility] T OFFICE 27556 [facility] 5 5 CARE R H T VISIT ASSOCIATE 15 S MINUTES EMERGENCY 57608 KEYUR CHAKRABORTY, 5 5 PHYSICIAN JR BRADLEY DEPARTMEN S, PLLC T VISIT HIGH/URGE NT SEVERITY [facility] - 5 5 [facility] OUTPATIEN INC T EMERGENCY 49567 [facility] DEPT 5 5 [facility] VISIT INC HIGH SEVERITY& THREAT [facility] 5 5 Y [facility] T OFFICE 26680 [facility] MEDICAL T VISIT SERV 15 FOUNDATIO MINUTES N OFFICE 19079 RAGHU ALINE SCO CONSULTAT 5 5 MEDICAL ION SERV NEW/ESTAB FOUNDATIO PATIENT N 40 MIN OFFICE 82105 [facility] 5 5 PHYSICIAN MARTHA Walker NEW 30 S GROUP MINUTES OFFICE 580[facility] 4 4 CARE R H T VISIT ASSOCIATE 15 S MINUTES EMERGENCY 01563 [facility] MARS 4 4 KRISSY GALLO DEPARTMEN EMERGENCY T VISIT PHYS HIGH/URGE NT SEVERITY EMERGENCY 07785 [facility] 4 4 KRISSY DEPARTMEN EMERGENCY T VISIT PHYS MODERATE SEVERITY EMERGENCY [address] [facility] 4 4 KRISSY GALLO DEPARTMEN EMERGENCY T VISIT PHYS MODERATE SEVERITY OFFICE 65307 DEVYN Patel OUTPATIEN 4 4 G G T VISIT 15 MINUTES OFFICE 97161 KASANDRA SLAUGHTER OUTPATIEN 4 4 GRE GRE T VISIT 15 MINUTES EMERGENCY 23399 [facility] 4 4 [facility] DEPARTMEN INC T VISIT HIGH/URGE NT SEVERITY HOSPITAL [facility] - 4 4 [facility] OUTPATIEN INC T EMERGENCY 99152 MARS TERRAZAS DEPT 4 4 GALLO GALLO VISIT HIGH SEVERITY& THREAT FUNCJ EMERGENCY 46898 MATT GUTIERREZ 4 4 [facility] DEPARTMEN T VISIT HIGH/URGE NT SEVERITY EMERGENCY 24505 [facility] 4 4 [facility] DEPARTMEN INC T VISIT MODERATE SEVERITY HOSPITAL [facility] Schaeffer 4 4 [facility] OUTPATIEN INC T Emergency JEANNIE Dailey MD (ER) 3 11:02 3 13:08 [facility] Emergency JEANNIE CHU (ER) 3 12:52 3 13:17 [facility] Emergency JEANNIE Terrazas MD (ER) 3 01:55 3 02:[address] [facility] Emergency JEANNIE Reyes MD (ER) 3 18:24 3 18:50 [facility] Emergency JEANNIE Orozco (ER) 3 22:05 3 23:41 [facility] Sonia Gutierrez OFFICE 61617 ROHINI NOVA OUTPATIEN 0 0 SONIA Nielsen T VISIT 15 MINUTES OFFICE 53029 ROHINI NOVA OUTPATIEN 0 0 SONIA Nielsen T VISIT 15 MINUTES OFFICE 55460 KANIKA BOUDREAUX, SHAYNAAT 9 9 PILI MAHONEY NEW/ESTAB PATIENT 80 MIN OFFICE 44046 KANIKA BOUDREAUX CONSULTAT 9 9 PILI MAHONEY NEW/ESTAB PATIENT 80 MIN OFFICE 05274 JIMMY CARRANZA 9 9 MEDICAL RADHA T T VISIT SERV 25 FOUNDATIO MINUTES EMERGENCY 22080 KASANDRA ZENDEJAS, 9 9 EMERGENCY SUPRIYA DEPARTMEN SERVICES O T VISIT HIGH/URGE ASSOCIATE NT S SEVERITY EMERGENCY 62753 [facility] 9 9 [facility] DEPARTMEN INC T VISIT LIMITED/M [facility] - 9 9 [facility] OUTPATIEN INC T OFFICE 07746 [facility] 9 CARE G T VISIT ASSOCIATE 25 S MINUTES OFFICE 83792 JIMMY SHAFER 9 9 MEDICAL AISLINN Winters T VISIT SERV 10 [facility] QUANG - 9 9 [facility] T EMERGENCY 54665 [facility] 9 9 [facility] DEPARTMEN INC T VISIT LOW/MODER SEVERITY EMERGENCY 12337 KASANDRA TERRAZAS, 9 9 EMERGENCY [facility] DEPARTMEN SERVICES T VISIT HIGH/URGE ASSOCIATE NT S SEVERITY HOSPITAL [facility] - 9 9 [facility] 01253 [facility] 9 9 [facility] DEPARTMEN INC T VISIT LOW/MODER SEVERITY EMERGENCY 76339 KASANDRA ZENDEJAS, 9 9 EMERGENCY SUPRIYA DEPARTMEN SERVICES O T VISIT HIGH/URGE ASSOCIATE NT S SEVERITY OFFICE 06689 JIMMY SHAFER 9 9 MEDICAL AISLINN Winters T VISIT SERV 10 [facility] UNIVERSIT - 9 9 [facility] T
--- OUTSIDE RECORDS SUMMARY | 2016-12-10 16:08 | External Medical Summary Rpt ---
Author Author , LIDIA MURILLO Address Unknown Phone [email or web address] Care Team Providers Care Hoop Expander Name Role Phone GUTIERREZ BRO, GUTIERREZ Unavailable Unavailable BRO GUTIERREZ BRO, GUTIERREZ Unavailable Unavailable BRO BEINEKE SUE, BEINEKE Unavailable Unavailable SUE DEANA ZAN, Unavailable Unavailable DEANA ZAN VIKI, RADHA T, Unavailable Unavailable VIKI, RADHA T [facility] Unavailable Unavailable [place], [facility] DEVYN Amanda G, DEVYN J Unavailable Unavailable G DEVYN Patel G, DEVYN J Unavailable Unavailable G Amanda SHEPARD, DEVYN, Unavailable Unavailable J G CROWDY CRI, CROWDY Unavailable Unavailable CRI ALEXA MICAH, Unavailable Unavailable ALEXA MICAH ALEXA MICAH, Unavailable Unavailable ALEXA MICAH ALEXA, BO, Unavailable Unavailable ALEXA, BO [facility] Unavailable [facility]available [facility], Unavailable Unavailable [facility] [place] [place], [facility] [place] KYLE SINDY, KYLE SINDY Unavailable Unavailable [facility] Un[facility], [facility] JR KIRK CHAKRABORTY, Unavailable Unavailable JR KIRK CHAKRABORTY GALLO, MARS Unavailable Unavailable GALLO MARS GALLO, MARS Unavailable Unavailable GALLO LISSETH CREWS, Unavailable Unavailable LISSETH CREWS [facility] Un[facility] Unavailable INC, [facility] Unavailable Unavailable IM[facility], [facility] YANG RAN, YANG Unavailable Unavailable RAN YANG RAN, YANG Unavailable Unavailable RAN ALINE SCO, ALINE SCO Unavailable Unavailable AISLINN MIRELES MAIR, Unavailable Unavailable AISLINN ASHBY, Unavailable Unavailable KASANDRA ASHBY, Unavailable Unavailable PILI ERICKSON, Unavailable Unavailable PILI BOUDREAUX JR, WILLIAM Unavailable Unavailable NAYLA Noguera JR, WILLIAM F MOBLEY, EMMETT P, Unavailable Unavailable BHAVESH CASTRO, Unavailable Unavailable IGNACIO JUS MULBERRY SINDY, Unavailable Unavailable MULBERRY SINDY [facility], Unavailable Unavailable SAM[facility] R H SONIA NOVA, Unavailable Unavailable [facility]IA [facility], Unavailable [facility]available [facility], [facility] PETTEY JAM, PETTEY Unavailable Unavailable JAM STEPHAN SINDY, STEPHAN Unavailable Unavailable SINDY SCHULSTAD AIYANA, Unavailable Unavailable SCHULSTAD AIYANA SOKAN, SUPRIYA O, Unavailable Unavailable SOKAN, SUPRIYA O [facility] Unavailable Unavailable EM[facility]Y [facility], [facility] ANGELICA JONNATHAN, ANGELICA Unavailable Unavailable JONNATHAN YVONNE ALEX, YVONNE Unavailable Unavailable ALEX [facility], Unavailable Unavailable [facility], [facility] Unavailable Unavailable WOOD MATEUSZ, EBRO MATEUSZ Unavailable Unavailable Purpose Continuity of Care Document [...] FOUNDATION FRACTURE OTHER BONE V5489 OTHER 12-24-2014 [facility] AFTERCARE 00951 CLOSED 12-10-2014 [facility] BONE SITE UNSPECIFIED V571 OTHER 11-19-2014 [facility] [facility] THERAPY 70550 OPEN 11-11-2014 [facility] DISTAL PHALANX OR PHALANGES HAND 8830 OPEN WOUND 11-08-2014 [facility] WITHOUT MENTION COMPLICATIO N 92624 CLOS 11-06-2014 [facility] L PHALANX/PHA LANG HAND 43516 CLOSED 11-06-2014 [place] [facility] ASS PHALANX OR PHALANGES HAND 8860 TRAUMATIC 11-06-2014 [facility], [facility]ING[facility] PLL[facility] WITHOUT MENTION COMP 8861 TRAUMATIC 11-06-2014 [facility] OF OTHER INC FINGER COMPLICATED 72808 PAIN IN 11-04-2014 [facility] AZLE SHOULDER REGION 7937 NONSPC ABN 11-04-2014 [facility] HOSPITAL & OTH EXM MUSCULSKELT L SYS 13121 OT NONSPC 11-04-2014 [facility] FIND SERV RAD&OTH EXM [facility]OUNDATION BODY STRUCTURE 8406 SUPRASPINAT 11-04-2014 [facility] SPRAIN SERV AND STRAIN FOUNDATION 8407 SUPERIOR 11-04-2014 [facility] LABRUM LESIONS 8408 SPRAIN&STRA 11-04-2014 [facility] SPEC SERV SITES [facility]ATION SHOULDER&UP PER ARM 36023 OTHER 10-05-2014 [facility] DISORDERS SERV OF BONE AND FOUNDATION CARTILAGE OTHER 73046 ABDOMINAL 03-31-2014 [place] PAIN, MEDICAL UNSPECIFIED IMAGING ASS SITE 8489 UNSPECIFIED 03-09-2014 [facility] SITE OF ASSOCIATES SPRAIN AND STRAIN 35140 ABDOMINAL 03-08-2014 [facility] OTHER N EMERGENCY SPECIFIED PHYS SITE 8488 OTHER 03-08-2014 [facility] SPECIFIED N EMERGENCY SITES OF PHYS SPRAINS AND STRAINS E9288 OTHER 03-08-2014 [facility] ACCIDENT N EMERGENCY PHYS 4739 UNSPECIFIED 02-15-2014 [facility] SINUSITIS N EMERGENCY PHYS 490 BRONCHITIS 02-15-2014 [facility] NOT N EMERGENCY SPECIFIED PHYS ACUTE OR CHRONIC 20218 SHORTNESS 02-15-2014 [facility] 30691 WHEEZING 02-15-2014 [facility] N EMERGENCY PHYS 5224 ACUTE 01-06-2014 [facility] APICAL N EMERGENCY PERIODONTIT PHYS IS OF PULPAL ORIGIN 5259 UNSPECIFIED 01-06-2014 [facility] DISORDER N EMERGENCY TEETH&SUPPO PHYS RTING STRUCTURES 13835 JAW PAIN 01-06-2014 [facility] N EMERGENCY PHYS 7242 LUMBAGO 12-09-2013 DEVYN Patel G 2243 BENIGN 10-28-2013 K[facility] NEOPLASM OF GRE CONJUNCTIVA 11666 UNSPECIFIED 09-30-2013 K[facility] SUBJECTIVE GRE VISUAL DISTURBANCE 27461 OTHER 09-30-2013 K[facility]AN[facility] VISUAL GRE DISTORTIONS AND ENTOPTIC PHENOMENA 66382 OTHER 09-30-2013 KASANDRA VITREOUS GRE OPACITIES 5409 ACUTE 09-07-2013 [facility] APPENDICITI [facility] WITHOUT INC MENTION PERITONITIS 541 APPENDICITI 09-07-2013 AIYANA IRIZARRY UNQUALIFIED 26721 OTHER 09-07-2013 ALEXA ASCITES MICAH 5400 ACUTE 09-06-2013 YANG RAN APPENDICITI S WITH GENERALIZED PERITONITIS 28521 ABDOMINAL 09-06-2013 MARS GALLO PAIN RIGHT LOWER QUADRANT 5589 OTH&UNSPEC 08-31-2013 MATT BERTRAND NONINFECTIO US GASTROENTER ITIS&COLITI S 50902 ABDOMINAL 08-31-2013 MATT BERTRAND PAIN, EPIGASTRIC 8470 NECK SPRAIN 05-17-2013 [facility] AND STRAIN [facility] INC 8500 CONCUSSION 05-17-2013 [facility] WITH NO [facility] LOSS OF INC CONSCIOUSNE SS 9221 CONTUSION 05-17-2013 [facility] OF CHEST [facility] WALL INC 20924 DYSFUNCTION 06-14-2009 ROHINI OF SONIA Nielsen EUSTACHIAN TUBE 51825 SIMPLE/UNSP 05-24-2009 ROHINI, ECIFIED SONIA Nielsen CHRONIC SEROUS OTITIS MEDIA 90992 BRAWNY 04-13-2009 KANIKA SCLERITIS PILI 1903 MALIGNANT 03-23-2009 KAN[facility]A NEOPLASM OF PILI CONJUNCTIVA 7850 UNSPECIFIED 03-16-2009 [facility] TACHYCARDIA FOUNDAT[facility] 45164 OTHER AND 03-07-2009 [facility] UNSPECIFIED ASSOCIATES CONJUNCTIVI TIS 4660 ACUTE 02-16-2009 [facility]IS [facility] 5110 PLEURISY 02-16-2009 [facility] WITHOUT EMERGENCY MENTION SERVICES EFFUS/CURRE ASSOCIATES NT TB 7862 COUGH 02-16-2009 [facility] 85588 PAINFUL 01-31-2009 [facility] RESPIRATION [facility] Medications Na ND Rx Da Fi Fi Am Da Di Ph RX Ph St me C No te ll ll ou ys ag ar # ys at rm s nt no ma ic us Or Da si cy ia de te s n re d NA 00 17 17 EA 16 LI Ac SO .0 ST 09 VA ti NE 51 5- 1- 00 SI 50 S ve X 28 20 20 DE IR 50 80 10 10 AK 1 PH LI MC AR S G MA C NA CY SA L OF SP CY RA NT Y HI AN A 00 02 00 60 30 EA 16 LI Ac 09 -[address] 09 VA ti 51 [...] OF S CY NT HI AN A 68 01 01 00 20 10 EA 15 PA Ac 82 -1 -[address] 93 RE ti 00 2- 8- 00 SI 41 LL ve 06 20 20 DE 30 10 10 WI 9 PH LL AR IA MA M CY M OF CY NT HI AN A AM [...] CY BL NT ET HI AN A 60 12 01 00 18 5 EA 15 NO Ac 25 -2 -[address] 76 RF ti 80 9- 4- 00 SI 16 LE ve 23 20 20 0 DE ET 91 09 10 R 6 PH AR HE MA NR CY Y OF CY NT HI AN A 00 11 11 00 [...] CY OP NT S HI AN A DO 53 10 10 00 14 7 EA 14 GA Ac XY 48 -0 -[address] 59 IN ti CY 90 7- 2- 00 SI 69 EY ve CL 11 20 20 DE IN 90 09 09 NC E 5 PH CH HY AR AE CL MA L AT CY S E 10 OF 0 CY MG NT HI CA AN P A ME 00 10 10 00 21 6 EA 14 GA Ac TH 78 -0 -[address] 59 IN ti YL 15 7- 2- 00 SI 70 EY ve NH 02 20 20 DE ED 20 09 09 NC NI 7 PH CH SO AR AE LO MA L NE CY S 4 OF MG CY NT DO HI SE AN PK A 00 10 10 00 9. 3 EA 14 GA Ac 25 -0 -[address] 59 IN ti 83 7- 2- 0 SI 68 EY ve 65 20 20 DE 40 09 09 NC 1 PH CH AR AE MA L [...] HOSP HOSP YRS/ INC INC > IM Procedures Procedure DOS Code Location Performer Comment IAADIADOO 74879 FAMILY MULBERRY 6 CARE SINDY INFLUENZA ASSOCIATE S COLLECTIO 42451 FAMILY CROWDY N 6 CARE CRI CAPILLARY ASSOCIATE BLOOD S SPECIMEN CULTURE 62488 COMBINED COMBINED BACTERIAL 6 PHYSICIAN PHYSICIAN S LA S LA QUANTTATI VE COLONY COUNT URINE BLOOD 87361 FAMILY CROWDY COUNT 6 CARE CRI COMPLETE ASSOCIATE AUTO&AUTO S DIFRNTL WBC RADEX 31002 [facility] HAND 5 MEDICAL Y JUS MINIMUM 3 SERV VIEWS FOUNDATIO N RADEX 69358 [place] [facility] HAND 5 MEDICAL Y JUS MINIMUM 3 SERV VIEWS FOUNDATIO N PHYSICAL 08279 [facility] THERAPY 5 Y Y EVALUATIO [facility] N INJECTION J1885 [facility] 5 Y Y KETOROLAC [facility] TROMETHAM INE PER 15 MG INJECTION J2704 [facility] PROPOFOL 5 Y Y 10 MG [facility] ANCHOR/SC C1713 [facility] REW 5 Y Y OPPOSING [facility] BN-TO-BN/ SOFT TISSUE-TO -BN PRQ SKEL 00324 [place] STEPHAN FIXJ DSTL 5 MEDICAL SINDY PHLNGL SERV FX FOUNDATIO FNGR/THMB N EA ANES 38841 [place] KYLE SINDY RADIUS 5 MEDICAL ULNA SERVICES WRIST/BUTLER D BONES CLOSED PX INJECTION J2250 [facility] 5 Y Y MIDAZOLAM [facility] HCL PER 1 MG INJECTION J1170 [facility] 5 Y Y HYDROMORP [facility] MAXWELL UP TO 4 MG INJECTION J3010 [facility] FENTANYL 5 Y Y CITRATE [facility] 0.1 MG INFUSION J7030 [facility] NORMAL 5 Y Y SALINE [facility] SOLUTION 1000 CC INJECTION J0690 [place] [address] Y Y CEFAZOLIN [facility] SODIUM 500 MG FLUOROSCO 67068 [facility] PY SPX UP 5 Y Y TO 1 [facility] HOUR PHYS/QHP TIME INJECTION J2405 [facility] PER 1 MG INJECTION J2765 [facility] 5 Y Y METOCLOPR [facility] AMIDE HCL UP TO 10 MG IM ADM 42932 [facility] PRQ ID 5 [facility] SUBQ/IM INC INC NJXS 1 VACCINE TDAP 64886 [facility] VACCINE 7 5 [facility] YRS/> [place] [address] [facility] RODRIGUEZON INFUSION 5 [facility] THER INC INC PROPH ADDL SEQUENTIA L TO 1 HR RADEX 02926 [place] DEANA HAND 5 MEDICAL ZAN MINIMUM 3 [place] [address] [facility] INFUSION 5 [facility] THERAPY/P INC INC ROPHYLAXI S /DX 1ST TO 1 HR THERAPEUT 13011 [facility] IC 5 [facility] INJECTION INC INC IV PUSH EACH NEW DRUG MRI ANY 14717 [place] CHRISTINA JT UPPER 5 MEDICAL Y JUS EXTREMITY SERV W/O FOUNDATIO CONTRAST N MATRL RADEX 90016 [place] ANGELICA SHOULDER 5 MEDICAL JONNATHAN COMPLETE SERV MINIMUM [address] [place] [address] JENNIFER LIU ABDOMEN & 4 MEDICAL MICAH PELVIS IMAGING W/[place] [address] JENNIFER CRUZ ABDOMEN & 4 MEDICAL SUE PELVIS IMAGING W/O ASS CONTRAST MATERIAL RADIOLOGI 98767 JENNIFER LIU C EXAM 4 MEDICAL MICAH CHEST 2 IMAGING VIEWS ASS FRONTAL&L ATERAL FUNDUS 11956 [facility] PHOTOGRAP 4 HY W/INTERPR ETATION & REPORT VISUAL 38013 KASANDRA SLAUGHTER FIELD XM 4 GRE GRE UNI/BI W/INTERP EXTENDED EXAM OPHTH 72021 KASANDRA SLAUGHTER MEDICAL 4 GRE GRE XM&EVAL COMPRE NEW PT 1/> VST BLOOD 97093 [facility] COUNT 4 [facility] COMPLETE INC INC AUTO&[place] [address] [facility] LIPASE 4 [place] [address] [facility] ABDOMEN & 4 [facility] PELVIS INC INC W/O CONTRAST MATERIAL URNLS DIP 34568 [facility] 4 [facility] STICK/TAB INC INC LET REAGENT AUTO MICROSCOP Y INJECTION J2405 [facility] 4 [facility] ONDANSETR INC INC ON HCL PER 1 MG LAPAROSCO 63673 [facility] PIC 4 [facility] APPENDECT INC INC STEFFANY ANESTHESI 05572 [facility] YVONNE A 4 ANESTH ALEX INTRAPERI OF THE TONEAL BLUE LOWER ABD W/LAPS NOS COMPREHEN 71944 [facility] SIVE 4 [facility] [address] [facility] AMYLASE 4 [facility] INC INC LEVEL III 63781 YANG YANG SURG 4 RAN RAN PATHOLOGY GROSS&GALLO ROSCOPIC EXAM RADEX ABD 22179 ALEXA ALEXA COMPL 4 MICAH MICAH AQT ABD W/S/E/D V[address] [address] [place] [address] [facility] HEAD/BRAI 4 [facility] N W/O INC INC CONTRAST MATERIAL UNLISTED 28008 [facility] PROCEDURE 4 [facility] INC INC CASTING/S TRAPPING RADIOLOGI 81697 [facility] C EXAM 4 [facility] CHEST 2 INC INC VIEWS FRONTAL&[place] [address] [facility] CERVICAL 4 [facility]OS[facility] SPINE W/O INC INC CONTRAST MATERIAL COMPRE 17772 ROHINI NOVA, AUDIOMETR 0 SONIA Nielsen Y THRESHOLD EVAL SP RECOGNIJ TYMPANOME 57009 ROHINI NOVA, TRY 0 SONIA Nielsen DETERMINA 12091 KANIKA BOUDREAUX TION 9 PILI ALEJANDRE REFRACTIV E STATE DETERMINA 05785 KANIKA BOUDREAUX TION 9 PILI ALEJANDRE REFRACTIV E STATE ECG 18436 [place] VIKI, ROUTINE 9 MEDICAL RADHA T ECG SERV W/LEAST FOUNDATIO 12 LDS W/I&R IAADI 60267 [facility] INFLUENZA 9 [facility]OS[facility] B VIRUS INC INC IAADI 61088 [facility] INFFLUENZ 9 [facility] A A VIRUS INC INC RADIOLOGI 53567 [facility] C EXAM 9 [facility] HOSP CHEST 2 INC INC VIEWS FRONTAL&L ATERAL ECG 42993 [facility] NAYLA ROUTINE 9 [facility] Poornima W/LEAST PROF SERV 12 LDS I&R ONLY RHYTHM 43215 [facility] ECG 1-3 9 [facility] HOSP LEADS INC INC TRACING ONLY W/O I&R RADEX 66363 [place] GLORIA, RIBS UNI 9 MEDICAL BHAVESH P W/POSTERO IMAGING ANT CH ASSOCIATE MINIMUM 3 S VIEWS ECG 26512 [facility] ROUTINE 9 [facility] HOSP ECG INC INC W/LEAST 12 LDS TRCG ONLY W/O I&R INJECTION J3010 [facility] FENTANYL 9 Y Y CITRATE [facility] 0.1 MG INJECTION J1885 [facility] 9 Y Y KETOROLAC [facility] TROMETHAM INE PER 15 MG ARTHROSCO 97853 [facility] PY 9 Y Y SHOULDER [facility] SURGICAL REPAIR SLAP LESION INJECTION J2250 [facility] 9 Y Y MIDAZOLAM [facility] HCL PER 1 MG INJECTION J1100 [facility] 9 Y Y DEXAMETHO [facility] SONE SODIUM PHOSPHATE 1 MG INJECTION J2795 [facility] 9 Y Y ROPIVACAI [facility] NE HYDROCHLO RIDE 1 MG RINGERS J7120 [facility] 9 Y Y INFUSION [facility] UP TO 1000 CC INJECTION J0690 [facility] 9 Y Y CEFAZOLIN [facility] SODIUM 500 MG INJECTION J0170 [facility] 9 Y Y ADRENALIN [facility] EPINEPHRI NE UP 1 ML AMPULE INJECTION J2405 [facility] PER 1 MG Encounters Encounter Start End Date Code Location Performer Type Date OFFICE 99549 FAMILY MULBERRY OUTPATIEN 6 6 CARE SINDY T VISIT ASSOCIATE 15 S MINUTES OFFICE 95706 [facility] CROWDY OUTPATIEN 6 6 CARE CRI T VISIT ASSOCIATE 15 S MINUTES OFFICE 61808 [facility] CROWDY OUTPATIEN 5 5 CARE CRI T VISIT ASSOCIATE 15 S MINUTES OFFICE 91552 FAMILY MULBERRY OUTPATIEN 5 5 CARE SINDY T VISIT ASSOCIATE 15 S MINUTES [facility] UNIVERSIT - 5 5 Y [facility] UNIVERSIT - 5 5 Y [facility] UNIVERSIT - 5 5 Y [facility] UNIVERSIT - 5 5 Y [facility] OFFICE 00936 FAMILY SAMPSON OUTPATIEN 5 5 CARE R H T VISIT ASSOCIATE 15 S MINUTES EMERGENCY 70779 [facility] DEPT 5 5 [facility] VISIT INC HIGH SEVERITY& THREAT [facility] - 5 5 [facility] OUTPATIEN INC T EMERGENCY 41673 KEY[facility] CHAKRABORTY, 5 5 PHYSICIAN JR BRADLEY DEPARTMEN S, PLLC T VISIT HIGH/URGE NT SEVERITY HOSPITAL UNIVERSIT - 5 5 Y [facility] T OFFICE 92365 RAGHU MIRELES SCO OUTPATIEN 5 5 MEDICAL T VISIT SERV 15 FOUNDATIO MINUTES N OFFICE 14894 [place] ALINE SCO CONSULTAT 5 5 MEDICAL ION SERV NEW/ESTAB FOUNDATIO PATIENT N 40 MIN OFFICE 21704 [facility] PETTEY [facility] 5 5 PHYSICIAN MARTHA T NEW 30 S GROUP MINUTES OFFICE 78211 [facility] OUTPATIEN 4 4 CARE R H T VISIT ASSOCIATE 15 S MINUTES EMERGENCY 95826 [facility] MARS 4 4 KRISSY GALLO DEPARTMEN EMERGENCY T VISIT PHYS HIGH/URGE NT SEVERITY EMERGENCY 49469 [facility] 4 4 KRISSY DEPARTMEN EMERGENCY T VISIT PHYS MODERATE SEVERITY EMERGENCY 68798 [facility] MARS 4 4 KRISSY GALLO DEPARTMEN EMERGENCY T VISIT PHYS MODERATE SEVERITY OFFICE 34219 DEVYN Patel OUTPATIEN 4 4 G G T VISIT 15 MINUTES OFFICE 83038 KASANDRA SLAUGHTER [facility] 4 4 GRE GRE T VISIT 15 MINUTES HOSPITAL [facility] - 4 4 [facility] OUTPATIEN INC T EMERGENCY 09704 [facility] 4 4 [facility] DEPARTMEN INC T VISIT HIGH/URGE NT SEVERITY EMERGENCY 55304 MARS CREWS DEPT 4 4 GALLO GALLO VISIT HIGH SEVERITY& THREAT FUNCJ EMERGENCY 02918 MATT GUTIERREZ 4 4 BRO BRO DEPARTMEN T VISIT HIGH/URGE NT SEVERITY EMERGENCY 21402 QAUNG 4 4 MEM HOS[facility] DEPARTMEN INC T VISIT MODERATE SEVERITY HOSPITAL [facility] - 4 4 [facility] OUTPATIEN INC T OFFICE 13823 ROHINI NOVA OUTPATIEN 0 0 SONIA Nielsen T VISIT 15 MINUTES OFFICE 56029 ROHINI NOVA OUTPATIALIYA 0 0 SONIA Nielsen T VISIT 15 MINUTES OFFICE 28764 KANIKA BOUDREAUX, CONSULTAT 9 9 PILI MAHONEY NEW/ESTAB PATIENT 80 MIN OFFICE 75582 KANIKA BOUDREAUX CONSULTAT 9 9 PILI MAHONEY NEW/ESTAB PATIENT 80 MIN OFFICE 42074 JIMMY CARRANZA 9 9 MEDICAL RADHA T T VISIT SERV 25 FOUNDATIO MINUTES HOSPITAL [facility] - 9 9 [facility] OUTPATIEN INC T EMERGENCY 15711 KASANDRA ZENDEJAS, 9 9 EMERGENCY SUPRIYA DEPARTMEN SERVICES O T VISIT HIGH/URGE ASSOCIATE NT S SEVERITY EMERGENCY 72521 [facility] 9 9 [facility] DEPARTMEN INC T VISIT LIMITED/M INOR PROB OFFICE 91735 Amanda ESPINOSA 9 9 CARE G T VISIT ASSOCIATE 25 S MINUTES OFFICE 87957 JIMMY SHAFER 9 9 MEDICAL AISLINN D T VISIT SERV 10 FOUNDATIO MINUTES EMERGENCY 01641 [facility] 9 9 [facility] DEPARTMEN INC T VISIT LOW/MODER SEVERITY HOSPITAL [facility] - 9 9 [facility] OUTPATIEN INC T EMERGENCY 78247 KASANDRA CREWS, 9 9 EMERGENCY LISSETH S DEPARTMEN SERVICES T VISIT HIGH/URGE ASSOCIATE NT S SEVERITY EMERGENCY 02322 [facility] 9 9 [facility] DEPARTMEN INC T VISIT LOW/MODER SEVERITY HOSPITAL [facility] - 9 9 [facility] OUTPATIEN INC T EMERGENCY 13400 KASANDRA ZENDEJAS, 9 9 EMERGENCY SUPRIYA DEPARTMEN SERVICES O T VISIT HIGH/URGE ASSOCIATE NT S SEVERITY OFFICE 41281 [facility] 9 9 MEDICAL AISLINN Winters T VISIT SERV 10 [facility] 9 Y [facility] T
--- OUTSIDE RECORDS SUMMARY | 2016-12-10 16:08 | External Medical Summary Rpt ---
Author Author , LIDIA MURILLO Address Unknown Phone [email or web address] Care Team Providers Care Oracle Developer Name Role Phone GUTIERREZ BRO, GUTIERREZ Unavailable [...] [facility], Unavailable Unavailable DEPT FOR SOCIAL [facility] [place] [place] [place] KYLE SINDY, KYLE SINDY Unavailable Unavailable [facility] JR KIRK CHAKRABORTY, Unavailable Unavailable JR KIRK CHAKRABORTY GALLO, MARS Unavailable Unavailable GALLO MARS GALLO, MARS Unavailable Unavailable GALLO LISSETH CREWS, Unavailable Unavailable LISSETH CREWS [facility] Unavailable Unavailable INC, QUANG [facility] Unavailable Unavailable [facility], [facility] YANG RAN, YANG Unavailable [...] SUPRIYA O, Unavailable Unavailable SOKAN, SUPRIYA O [facility] Unavailable Unavailable [facility], [facility] ANGELICA JONNATHAN, ANGELICA Unavailable Unavailable JONNATHAN YVONNE ALEX, YVONNE Unavailable Unavailable ALEX [facility], Unavailable Unavailable [facility], [facility] Unavailable Unavailable WOOD MATEUSZ, [place] MATEUSZ Unavailable Unavailable Purpose Continuity of Care [...] CARE SINUSITIS ASSOC[facility]ATES UNSPECIFIED V5419 AFTERCARE 12-24-2014 [facility] FRACTURE OTHER BONE V5489 OTHER 12-24-2014 [facility] AFTERCARE 37679 CLOSED 12-10-2014 [facility] METACARPAL [facility] BONE SITE UNSPECIFIED V571 OTHER 11-19-2014 [facility] THERAPY 81789 OPEN 11-11-2014 [facility] DISTAL PHALANX OR PHALANGES HAND 8830 OPEN WOUND 11-08-2014 [facility] WITHOUT MENTION COMPLICATIO N 75109 CLOS 11-06-2014 [facility] MID/[facility] L PHALANX/PHA LANG HAND 05315 CLOSED 11-06-2014 [facility]RA[facility] DISTAL IMAGING ASS PHALANX OR PHALANGES HAND 8860 TRAUMATIC 11-06-2014 [facility], [facility] PLL[facility] WITHOUT MENTION COMP 8861 TRAUMATIC 11-06-2014 [facility] AMP[facility] OF OTHER INC FINGER COMPLICATED 81998 PAIN IN 11-04-2014 [facility] SHOULDER REGION 7937 NONSPC ABN 11-04-2014 [facility] HOSPITAL & OTH EXM MUSCULSKELT L SYS 24941 OT NONSPC 11-04-2014 [facility] FIND SERV RAD&OTH EXM FOUNDATION BODY STRUCTURE 8406 SUPRASPINAT 11-04-2014 [facility] SPRAIN SERV AND STRAIN FOUNDATION 8407 SUPERIOR 11-04-2014 [facility] LABRUM LESIONS 8408 SPRAIN&STRA 11-04-2014 [facility] IN OTH SPEC SERV SITES FOUNDATION SHOULDER&UP PER ARM 25793 OTHER 10-05-2014 [facility] DIS[facility]ERS [facility] OF BONE AND FOUNDATION CARTILAGE OTHER 38117 ABDOMINAL 03-31-2014 [facility] PAIN, MEDICAL UNSPECIFIED IMAGING ASS SITE 8489 UNSPECIFIED 03-09-2014 [facility] SITE OF ASSOCIATES SPRAIN AND STRAIN 39290 ABDOMINAL 03-08-2014 [facility] OTHER N EMERGENCY SPECIFIED PHYS SITE 8488 OTHER 03-08-2014 [facility] SPECIFIED N EMERGENCY SITES OF PHYS SPRAINS AND STRAINS E9288 OTHER 03-08-2014 [facility] ACCIDENT N EMERGENCY PHYS 4739 UNSPECIFIED 02-15-2014 [facility] SINUSITIS N EMERGENCY PHYS 490 BRONCHITIS 02-15-2014 [facility] NOT N EMERGENCY SPECIFIED PHYS ACUTE OR CHRONIC 84350 SHORTNESS 02-15-2014 [facility] 01098 WHEEZING 02-15-2014 [facility] N EMERGENCY PHYS 5224 ACUTE 01-06-2014 [facility] APICAL N EMERGENCY PERIODONTIT PHYS IS OF PULPAL ORIGIN 5259 UNSPECIFIED 01-06-2014 [facility] DISORDER N EMERGENCY TEETH&SUPPO PHYS RTING STRUCTURES 53273 JAW PAIN 01-06-2014 [facility] N EMERGENCY PHYS 7242 LUMBAGO 12-09-2013 DEVYN Patel G 2243 BENIGN 10-28-2013 KASANDR[facility] NEOPLASM OF GRE CONJUNCTIVA 41185 UNSPECIFIED 09-30-2013 KASANDRA SUBJECTIVE GRE VISUAL DISTURBANCE 63492 OTHER 09-30-2013 KASANDRA VISUAL GRE DISTORTIONS AND ENTOPTIC PHENOMENA 19041 OTHER 09-30-2013 KASANDRA VITREOUS GRE OPACITIES 5409 ACUTE 09-07-2013 [facility] APPENDICITI [facility] WITHOUT INC MENTION PERITONITIS 541 APPENDICITI 09-07-2013 AIYANA IRIZARRY UNQUALIFIED 22865 OTHER 09-07-2013 ALEXA ASCITES MICAH 5400 ACUTE 09-06-2013 YANG RAN APPENDICITI S WITH GENERALIZED PERITONITIS 93408 ABDOMINAL 09-06-2013 MARS GALLO PAIN RIGHT LOWER QUADRANT 5589 OTH&UNSPEC 08-31-2013 MATT BERTRAND NONINFECTIO US GASTROENTER ITIS&COLITI S 43096 ABDOMINAL 08-31-2013 MATT BERTRAND PAIN, EPIGASTRIC 8470 NECK SPRAIN 05-17-2013 [facility] AND STRAIN [facility] INC 8500 CONCUSSION 05-17-2013 [facility] WITH NO [facility] LOSS OF INC CONSCIOUSNE SS 9221 CONTUSION 05-17-2013 [facility] OF CHEST [facility] WALL INC 60148 DYSFUNCTION 06-14-2009 ROHINI OF SONIA Nielsen EUSTACHIAN TUBE 48643 SIMPLE/UNSP 05-24-2009 ROHINI, ECIFIED SONIA Nielsen CHRONIC SEROUS OTITIS MEDIA 97965 BRAWNY 04-13-2009 KANIKA SCLERITIS PILI 1903 MALIGNANT 03-23-2009 KANIKA NEOPLASM OF PILI CONJUNCTIVA 7850 UNSPECIFIED 03-16-2009 [facility] TACHYCARDIA FOUNDATIO 05338 OTHER AND 03-07-2009 [facility] UNSPECIFIED ASSOCIATES CONJUNCTIVI TIS 4660 ACUTE 02-16-2009 [facility] BRONCHITIS [facility] 5110 PLEURISY 02-16-2009 [facility] WITHOUT EMERGENCY MENTION SERVICES EFFUS/CURRE ASSOCIATES NT TB 7862 COUGH 02-16-2009 [facility] 60842 PAINFUL 01-31-2009 [facility] RESPIRATION [facility] Medications Na ND [...] 20 20 DE IN 90 09 09 NE E 5 PH CH HY AR AE CL MA L AT CY S E 10 OF 0 CY MG NT HI CA AN P A ME 00 10 10 00 21 6 EA 14 GA Ac TH 78 -0 -[address] 59 IN ti YL 15 7- 2- 00 SI 70 EY ve UT 02 20 20 DE ED 20 09 09 NE NI 7 PH CH SO AR AE LO MA L NE CY S 4 OF MG CY NT DO HI SE AN PK A 00 10 10 00 9. 3 EA 14 GA Ac 25 -0 -[address] 59 IN ti 83 7- 2- 0 SI 68 EY ve 65 20 20 DE 40 09 09 NE 1 PH CH AR AE MA L [...] Procedure DOS Code Location Performer Comment IAADIADOO 60678 FAMILY MULBERRY 6 CARE SINDY INFLUENZA ASSOCIATE S COLLECTIO 11643 FAMILY CROWDY N 6 CARE CRI CAPILLARY ASSOCIATE BLOOD S SPECIMEN CULTURE 90129 COMBINED COMBINED BACTERIAL 6 PHYSICIAN PHYSICIAN S LA S LA QUANTTATI VE COLONY COUNT URINE BLOOD 67948 FAMILY CROWDY COUNT 6 CARE CRI COMPLETE ASSOCIATE AUTO&AUTO S DIFRNTL WBC RADEX 28430 [facility] HAND 5 MEDICAL Y JUS MINIMUM 3 SERV VIEWS FOUNDATIO N RADEX 82404 [place] [facility] HAND 5 MEDICAL Y JUS MINIMUM 3 SERV VIEWS FOUNDATIO N PHYSICAL 74028 [facility] THERAPY 5 Y Y EVALUATIO [facility] N INJECTION J1885 [facility] 5 Y Y KETOROLAC [facility] TROMETHAM INE PER 15 MG INJECTION J2704 [facility] PROPOFOL 5 Y Y 10 MG [facility] ANCHOR/SC C1713 [facility] REW 5 Y Y OPPOSING [facility] BN-TO-BN/ SOFT TISSUE-TO -BN PRQ SKEL 58427 [place] STEPHAN FIXJ DSTL 5 MEDICAL SINDY PHLNGL SERV FX FOUNDATIO FNGR/THMB N EA ANES 40707 [place] KYLE SINDY RADIUS 5 MEDICAL ULNA SERVICES WRIST/BUTLER D BONES CLOSED PX INJECTION J2250 [facility] 5 Y Y MIDAZOLAM [facility] HCL PER 1 MG INJECTION J1170 [facility] 5 Y Y HYDROMORP [facility] MAXWELL UP TO 4 MG INJECTION J3010 [facility] FENTANYL 5 Y Y CITRATE [facility] 0.1 MG INFUSION J7030 [facility] NORMAL 5 Y Y SALINE [facility] SOLUTION 1000 CC INJECTION J0690 [place] [address] Y Y CEFAZOLIN [facility] SODIUM 500 MG FLUOROSCO 91676 [facility] PY SPX UP 5 Y Y TO 1 [facility] HOUR PHYS/QHP TIME INJECTION J2405 [facility] PER 1 MG INJECTION J2765 [facility] 5 Y Y METOCLOPR [facility] AMIDE HCL UP TO 10 MG IM ADM 74036 [facility] PRQ ID 5 [facility] SUBQ/IM INC INC NJXS 1 VACCINE TDAP 48033 [facility] VACCINE 7 5 [facility] MEM HOS[facility] YRS/> [place] [address] [facility] RODRIGUEZON INFUSION 5 [facility] THER INC INC PROPH ADDL SEQUENTIA L TO 1 HR RADEX 36220 [place] DEANA HAND 5 MEDICAL ZAN MINIMUM 3 [place] [address] [facility] INFUSION 5 [facility] THERAPY/P INC INC ROPHYLAXI S /DX 1ST TO 1 HR THERAPEUT 32777 [facility] IC 5 [facility] INJECTION INC INC [place]USH [place]ACH [place] ANY [address] [place] CHRISTINA JT UPPER 5 MEDICAL Y JUS EXTREMITY SERV W/O FOUNDATIO CONTRAST N MATRL RADEX 17424 [place] ANGELICA SHOULDER 5 MEDICAL JONNATHAN COMPLETE SERV MINIMUM [address] [place] [address] JENNIFER LIU ABDOMEN & 4 MEDICAL MICAH PELVIS IMAGING W/[place] [address] JENNIFER CRUZ ABDOMEN & 4 MEDICAL SUE PELVIS IMAGING W/O ASS CONTRAST MATERIAL RADIOLOGI 77662 JENNIFER LIU C EXAM 4 MEDICAL MICAH CHEST 2 IMAGING VIEWS ASS FRONTAL&L ATERAL FUNDUS [address] [facility] PHOTOGRAP 4 HY W/INTERPR ETATION & REPORT VISUAL 97312 KASANDRA SLAUGHTER FIELD XM 4 GRE GRE UNI/BI W/INTERP EXTENDED EXAM OPHTH 75881 KASANDRA SLAUGHTER MEDICAL 4 GRE GRE XM&EVAL COMPRE NEW PT 1/> VST BLOOD 79831 [facility] COUNT 4 [facility] COMPLETE INC INC AUTO&[place] [address] [facility] LIPASE 4 [place] [address] [facility] ABDOMEN & 4 [facility] PELVIS INC INC W/O CONTRAST MATERIAL URNLS DIP 65028 [facility] 4 [facility] STICK/TAB INC INC LET REAGENT AUTO MICROSCOP Y INJECTION J2405 [facility] [address] [facility] ONDANSETR INC INC ON HCL PER 1 MG LAPAROSCO 86190 [facility] PIC [address] [facility] APPENDECT INC INC STEFFANY ANESTHESI 16687 [facility] YVONNE A 4 ANESTH ALEX INTRAPERI OF THE TONEAL BLUE LOWER ABD W/LAPS NOS COMPREHEN 19829 [facility] SIVE 4 [facility] [place] [address] [facility] AMYLASE 4 [facility] INC INC LEVEL III 31366 YANG YANG SURG 4 RAN RAN PATHOLOGY GROSS&GALLO ROSCOPIC EXAM RADEX ABD 34089 ALEXA ALEXA COMPL 4 MICAH MICAH AQT ABD W/S/E/D [address] [address] [place] [address] [facility] HEAD/BRAI 4 [facility] N W/O INC INC CONTRAST MATERIAL UNLISTED 05359 [facility] PROCEDURE [address] [facility]OS[facility] INC INC CASTING/S TRAPPING RADIOLOGI 51624 [facility] C EXAM [address] [facility] CHEST 2 INC INC VIEWS FRONTAL&[place] [address] [facility] CERVICAL 4 [facility] SPINE W/O INC INC CONTRAST MATERIAL COMPRE 89751 ROHINI NOVA, AUDIOMETR 0 SONIA Nielsen Y THRESHOLD EVAL SP RECOGNIJ TYMPANOME 10796 ROHINI NOVA, TRY 0 SONIA Nielsen DETERMINA 84505 KANIKA BOUDREAUX TION 9 PILI ALEJANDRE REFRACTIV E STATE DETERMINA 43259 KANIKA BOUDREAUX TION 9 PILI ALEJANDRE REFRACTIV E STATE ECG 30744 [place] VIKI, ROUTINE 9 MEDICAL RADHA T ECG SERV W/LEAST FOUNDATIO 12 LDS W/I&R IAADI 31430 [facility] INFLUENZA 9 [facility]OS[facility] B VIRUS INC INC IAADI 86521 [facility] INFFLUENZ 9 [facility] A A VIRUS INC INC RADIOLOGI 61738 [facility] C EXAM 9 [facility] HOSP CHEST 2 INC INC VIEWS FRONTAL&L ATERAL ECG 76651 [facility] NAYLA ROUTINE 9 [facility] Poornima W/LEAST PROF SERV 12 LDS I&R ONLY RHYTHM 06954 [facility] ECG 1-3 9 [facility] HOSP LEADS INC INC TRACING ONLY W/O I&R RADEX 40189 [facility] GLORIA, RIBS UNI 9 MEDICAL BHAVESH P W/POSTERO IMAGING ANT CH ASSOCIATE MINIMUM 3 S VIEWS ECG 97763 [facility] ROUTINE 9 [facility] HOSP ECG INC INC W/LEAST 12 LDS TRCG ONLY W/O I&R INJECTION J3010 [facility] FENTANYL 9 Y Y CITRATE [facility] 0.1 MG INJECTION J1885 [facility] 9 Y Y KETOROLAC [facility] TROMETHAM INE PER 15 MG ARTHROSCO 09505 [facility] PY 9 Y Y SHOULDER [facility] SURGICAL REPAIR SLAP LESION INJECTION J2250 [facility] 9 Y Y MIDAZOLAM [facility] HCL PER 1 MG INJECTION J1100 [facility] 9 Y Y DEXAMETHO [facility] SONE SODIUM PHOSPHATE 1 MG INJECTION J2795 [facility] 9 Y Y ROPIVACAI [facility] NE HYDROCHLO RIDE 1 MG RINGERS J7120 [facility] 9 Y Y INFUSION [facility] UP TO 1000 CC INJECTION J0690 [facility] 9 Y Y CEFAZOLIN [facility] SODIUM 500 MG INJECTION J0170 [facility] 9 Y Y ADRENALIN [facility] EPINEPHRI NE UP 1 ML AMPULE INJECTION J2405 [facility] PER 1 MG Encounters Encounter Start End Date Code Location Performer Type Date OFFICE 83530 FAMILY MULBERRY OUTPATIEN 6 6 CARE SINDY T VISIT ASSOCIATE 15 S MINUTES OFFICE 67723 FAMILY CROWDY OUTPATIEN 6 6 CARE CRI T VISIT ASSOCIATE 15 S MINUTES OFFICE 38992 FAMILY CROWDY OUTPATIEN 5 5 CARE CRI T VISIT ASSOCIATE 15 S MINUTES OFFICE 00473 [facility] MULBERRY OUTPATIEN 5 5 CARE SINDY T VISIT ASSOCIATE 15 S MINUTES [facility] UNIVERSIT - 5 5 Y [facility] UNIVERSIT - 5 5 Y [facility] UNIVERSIT - 5 5 Y [facility] - 5 5 [facility] OFF[facility] 09327 [facility] OUTPATIEN 5 5 CARE R H T VISIT ASSOCIATE 15 S MINUTES EMERGENCY 35071 QAUNG DEPT 5 5 MEM H[facility] VISIT INC HIGH SEVERITY& THREAT [facility] - 5 5 [facility] OUTPATIEN INC T EMERGENCY 97876 KEYUR CHAKRABORTY, 5 5 PHYSICIAN JR [facility] DEPARTMEN [facility] PLL[facility] T VISIT HIGH/URGE NT SEVERITY [facility] T OFF[facility] 31228 RAGHU MIRELES SCO OUTPATIEN 5 5 MEDICAL T VISIT SERV 15 FOUNDATIO MINUTES N OFFICE 99502 [place] ALINE SCO CONSULTAT 5 5 MEDICAL ION SERV NEW/ESTAB FOUNDATIO PATIENT N 40 MIN OFFICE 09805 [facility] 5 5 PHYSICIAN MARTHA T NEW 30 S GROUP MINUTES OFFICE 64014 FAMILY [facility] OUTPATIEN 4 4 CARE R H T VISIT ASSOCIATE 15 S MINUTES EMERGENCY 96556 [facility] MARS 4 4 KRISSY GALLO DEPARTMEN EMERGENCY T VISIT PHYS HIGH/URGE NT SEVERITY EMERGENCY 44334 [facility] 4 4 KRISSY DEPARTMEN EMERGENCY T VISIT PHYS MODERATE SEVERITY EMERGENCY 86427 [facility] MARS 4 4 KRISSY GALLO DEPARTMEN EMERGENCY T VISIT PHYS MODERATE SEVERITY OFFICE 43021 DEVYN Patel OUTPATIEN 4 4 G G T VISIT 15 MINUTES OFFICE 31804 [facility]TER [facility] 4 4 GRE GRE T VISIT 15 MINUTES HOSPITAL [facility] - 4 4 [facility] OUTPATIEN INC T EMERGENCY 55398 [facility] 4 4 [facility] DEPARTMEN INC T VISIT HIGH/URGE NT SEVERITY EMERGENCY 72382 MARS CREWS DEPT 4 4 GALLO GALLO VISIT HIGH SEVERITY& THREAT FUNCJ EMERGENCY 87338 MATT GUTIERREZ 4 4 BRO BRO DEPARTMEN T VISIT HIGH/URGE NT SEVERITY EMERGENCY 12121 [facility] 4 4 [facility] DEPARTMEN INC T VISIT MODERATE SEVERITY HOSPITAL [facility] - 4 4 [facility] OUTPATIEN INC T OFFICE 28989 ROHINI NOVA OUTPATIEN 0 0 SONIA Nielsen T VISIT 15 MINUTES OFFICE 49792 ROHINI NOVA OUTPATIALIYA 0 0 SONIA Nielsen T VISIT 15 MINUTES OFFICE 10145 KANIKA BOUDREAUX, CONSULTAT 9 9 PILI MAHONEY NEW/ESTAB PATIENT 80 MIN OFFICE 33888 KANIKA BOUDREAUX CONSULTAT 9 9 PILI MAHONEY NEW/ESTAB PATIENT 80 MIN OFFICE 14095 JIMMY CARRANZA 9 9 MEDICAL RADHA T T VISIT SERV 25 FOUNDATIO MINUTES HOSPITAL [facility] - 9 9 [facility] OUTPATIEN INC T EMERGENCY 08308 KASANDRA ZENDEJAS, 9 9 EMERGENCY SUPRIYA DEPARTMEN SERVICES O T VISIT HIGH/URGE ASSOCIATE NT S SEVERITY EMERGENCY 60661 [facility] 9 9 [facility] DEPARTMEN INC T VISIT LIMITED/M INOR PROB OFFICE 31123 Amanda ESPINOSA 9 9 CARE G T VISIT ASSOCIATE 25 S MINUTES OFFICE 69936 JIMMY SHAFER 9 9 MEDICAL AISLINN D T VISIT SERV 10 FOUNDATIO MINUTES EMERGENCY 55002 [facility] 9 9 [facility] DEPARTMEN INC T VISIT LOW/MODER SEVERITY HOSPITAL [facility] - 9 9 [facility] OUTPATIEN INC T EMERGENCY 77343 KASANDRA CREWS, 9 9 EMERGENCY LISSETH S DEPARTMEN SERVICES T VISIT HIGH/URGE ASSOCIATE NT S SEVERITY EMERGENCY 72502 [facility] 9 9 [facility] DEPARTMEN INC T VISIT LOW/MODER SEVERITY HOSPITAL [facility] - 9 9 [facility] OUTPATIEN INC T EMERGENCY 60846 KASANDRA ZENDEJAS, 9 9 EMERGENCY SUPRIYA DEPARTMEN SERVICES O T VISIT HIGH/URGE ASSOCIATE NT S SEVERITY OFFICE 95223 [facility] 9 9 MEDICAL AISLINN Winters T VISIT SERV 10 [facility] Y [facility] T
--- OUTSIDE RECORDS SUMMARY | 2016-12-10 16:09 | External Medical Summary Rpt ---
Author Author LIDIA Escobar, [employer] Organization [employer] Address Unknown Phone Unavailable
--- OUTSIDE RECORDS SUMMARY | 2016-12-10 16:09 | External Medical Summary Rpt ---
Demographics Preferred Language Occitan Marital Status Unknown Hindu Affiliation Unknown Race Unknown Ethnic Group Unknown Author Author [employer] Address Unknown Phone Immunization Unable to retrieve immunization data due to connection failure with Immunization Registry. Please try again later.
--- OUTSIDE RECORDS SUMMARY | 2016-12-10 16:09 | External Medical Summary Rpt ---
Demographics Preferred Language Kyrgyz Marital Status Unknown Yarsani Affiliation Unknown Race Unknown Ethnic Group Unknown Author Author [employer] Address Unknown Phone Immunization Unable to retrieve immunization data due to connection failure with Immunization Registry. Please try again later.
--- NOTE | 2016-12-10 16:11 | Urgent Treatment Center Report ---
History of Present Issue Date/Time Seen by Provider 12/10/16 1610 Visit Reason Pt arrived:Walked Presenting Problem:PT STATES HIS RIGHT PINKY WAS HIT BY A BASEBALL LAST NIGHT Location if Accident: Onset of symptoms date/time:12/09/16/ or onset unknown for:MEDICAL HX UNKNOWN Have you (or family members/close friends) recently traveled outside the [place]? N If Yes, where/when: Have you had exposure to infectious disease within the past month? TB? Other? Specify: c/o right 5th digit pain, primarily at the tip. Reports this exact area was hit by a baseball last night. Pain since. Worse today. Harder to move finger "due to the pain but I can do it". Hasn't taken or tried anything for pain. Denies N/T. Source patient Exam Limitations no limitations ALLERGIES Coded Allergies: sulfamethoxazole (From [facility]) (12/10/16) trimethoprim (From [facility]) (12/10/16) Home Medications Reported Medications No Known Home Medications History Medical History General CAD? No Angina: No NH: No Hypertension? No Hyperlipidemia? No CHF? No DVT? No PE? No COPD? No Asthma? No Anemia? No GERD? No Gastric ulcers? No GI Bleed? No Hernia? No Thyroid Problems? No Hypothyroidism? No CVA? No Seizures? No Diabetes? No Renal Insuffiency? No UTI? No Stones? No BPH? No GB Disease: No Nephritic Syndrome? No Asplenia? No Hepatitis? No Sickle Cell Disease? No Arthritis? No Migraines? No Cataracts? No Glaucoma? No MRSA? Yes HIV? No TB? No Anxiety? No Depression? No Cancer? No Immunization HX DT/Tetanus [id number] Pneumonia Refuses Surgical Hx Previous Surgery?Y EAR TUBES TONSILS HEART CATH 09/13 BIOPSY ON STOMACH SHOULDER SURG. R X2 APPY Social History Smoking Hx Smoker: Current Every Day Smoker Tobacco: Yes Type Cigarettes Packs/day < 1 Pack Alcohol Alcohol: No Review of Systems All Other Systems Reviewed and Negative Constitutional denies fever, denies malaise Musculoskeletal see HPI, denies joint swelling Skin denies change in color (nail "light purple"), change in hair/nails Psychiatric/Neurological see HPI Physical Exam Vital Signs Vital Signs Date Time Temp Pulse Resp B/P Pulse O2 O2 Flow FiO2 Ox Delivery Rate 12/10 1604 98.3 93 20 114/74 100 General Appearance normal appearance, no apparent distress Respiratory Status No: respiratory distress. Cardiovascular no peripheral edema Peripheral Pulses Pulses normal Yes (radial) Extremities normal inspection of right digits and hand w/ exception of 5th digit nail, mild subugnal hematoma, tenderness right 5th digit distal phalanx only, limited AROM right 5th digit, full PROM without pain right 5th digit Neurologic alert, no motor/sensory deficits, oriented x 3 Skin warm/dry, dirty, out building fences today Medical Decision Making LABS/Meds/Orders Pt receiving controlled substance in ED? No Results/Orders Orders Procedure Date/time Status HAND-RT 3 VIEWS 12/10 1607 Active XRAY/CT/US XRAY/CT/US XRAY hand (right) XR interpretation by reviewed by me Xray Results right 5th digit distal phalanx fracture Consult MD Physician Consult Consult/PCP ZEN Kumar MD Reason Pt. Condition Comments Dr. Del Rio unable to review xray. All computers currently black. Recommends splinting and meredith taping for distal phalanx fracture. Progress [facility] Progress Notes 1 Date 12/10/16 Time 1645 Comment Called to review xray and condition w/ ZEN Kumar MD. Not currently available. Elif Green RN will have her call [facility] Progress Notes 2 Date 12/10/16 Comment patient refusing nail trepination. Wants to monitor and return only if worsens. on phone when [employer] entered letting his baseball team know he will still be playing tonight. "I can play 2nd or 3rd if you would like. I will be there. Might be late but I will be there and I am playing." Discouraged this. Away of risk for further injury or dislocation of current fracture. Pt states + understanding. Departure Departure Time of Disposition 1720 Disposition DC Home or Self Care(routine) Clinical Impression Primary Impression: Fracture of distal phalanx of finger of right hand Condition STABLE Referrals Karyn Fontenot MD (Family) Call tomorrow and schedule FU appointment. Could require relief for that fingernail or ortho referral. Return immediately for new or worsening symptoms. Patient Instructions DI for Finger Fracture Additional Instructions * Rest * ice 15-20 mins 3-4 times a day * Splint and meredith taping. Be sure not too tight but not too loose either * Elevate as discussed as much as possible to help reduce swelling and therefore , pain * Ibuprofen every 6 hours as needed for pain and inflammation. If you need something more, you can take tylenol every 4 hours as needed as long as your primary care provider has told you it is ok to take both. Follow up with Dr. Fontenot. Call him tomorrow and schedule FU appt. Might need trepination for right nail to get relief if worsening or referral to ortho if no improvement. Discharge Counseling Counseled pt/family regarding diagnosis, test results, medications/RX, home care, follow up needs Prescriptions Current Visit Scripts No Known Home Medications at 7178
--- NOTE | 2016-12-10 16:11 | Urgent Treatment Center Report ---
History of Present Issue Date/Time Seen by Provider 12/10/16 1610 Visit Reason Pt arrived:Walked Presenting Problem:PT STATES HIS RIGHT PINKY WAS HIT BY A BASEBALL LAST NIGHT Location if Accident: Onset of symptoms date/time:12/09/16/ or onset unknown for:MEDICAL HX UNKNOWN Have you (or family members/close friends) recently traveled outside the [place]? N If Yes, where/when: Have you had exposure to infectious disease within the past month? TB? Other? Specify: c/o right 5th digit pain, primarily at the tip. Reports this exact area was hit by a baseball last night. Pain since. Worse today. Harder to move finger "due to the pain but I can do it". Hasn't taken or tried anything for pain. Denies N/T. Source patient Exam Limitations no limitations ALLERGIES Coded Allergies: sulfamethoxazole (From BACTRIM) (12/10/16) trimethoprim (From BACTRIM) (12/10/16) Home Medications Reported Medications No Known Home Medications History Medical History General CAD? No Angina: No HI: No Hypertension? No Hyperlipidemia? No CHF? No DVT? No PE? No COPD? No Asthma? No Anemia? No GERD? No Gastric ulcers? No GI Bleed? No Hernia? No Thyroid Problems? No Hypothyroidism? No CVA? No Seizures? No Diabetes? No Renal Insuffiency? No UTI? No Stones? No BPH? No GB Disease: No Nephritic Syndrome? No Asplenia? No Hepatitis? No Sickle Cell Disease? No Arthritis? No Migraines? No Cataracts? No Glaucoma? No MRSA? Yes HIV? No TB? No Anxiety? No Depression? No Cancer? No Immunization HX DT/Tetanus [id number] Pneumonia Refuses Surgical Hx Previous Surgery?Y EAR TUBES TONSILS HEART CATH 09/13 BIOPSY ON STOMACH SHOULDER SURG. R X2 APPY Social History Smoking Hx Smoker: Current Every Day Smoker Tobacco: Yes Type Cigarettes Packs/day < 1 Pack Alcohol Alcohol: No Review of Systems All Other Systems Reviewed and Negative Constitutional denies fever, denies malaise Musculoskeletal see HPI, denies joint swelling Skin denies change in color (nail "light purple"), change in hair/nails Psychiatric/Neurological see HPI Physical Exam Vital Signs Vital Signs Date Time Temp Pulse Resp B/P Pulse O2 O2 Flow FiO2 Ox Delivery Rate 12/10 1604 98.3 93 20 114/74 100 General Appearance normal appearance, no apparent distress Respiratory Status No: respiratory distress. Cardiovascular no peripheral edema Peripheral Pulses Pulses normal Yes (radial) Extremities normal inspection of right digits and hand w/ exception of 5th digit nail, mild subugnal hematoma, tenderness right 5th digit distal phalanx only, limited AROM right 5th digit, full PROM without pain right 5th digit Neurologic alert, no motor/sensory deficits, oriented x 3 Skin warm/dry, dirty, out building fences today Medical Decision Making LABS/Meds/Orders Pt receiving controlled substance in ED? No Results/Orders Orders Procedure Date/time Status HAND-RT 3 VIEWS 12/10 1607 Active XRAY/CT/US XRAY/CT/US XRAY hand (right) XR interpretation by reviewed by me Xray Results right 5th digit distal phalanx fracture Consult MD Physician Consult Consult/PCP ZEN Kumar MD Reason Pt. Condition Comments Dr. Del Rio unable to review xray. All computers currently black. Recommends splinting and meredith taping for distal phalanx fracture. Progress [facility] Progress Notes 1 Date 12/10/16 Time 1645 Comment Called to review xray and condition w/ ZEN Kumar MD. Not currently available. Elif Green RN will have her call [facility] Progress Notes 2 Date 12/10/16 Comment patient refusing nail trepination. Wants to monitor and return only if worsens. on phone when [employer] entered letting his baseball team know he will still be playing tonight. "I can play 2nd or 3rd if you would like. I will be there. Might be late but I will be there and I am playing." Discouraged this. Away of risk for further injury or dislocation of current fracture. Pt states + understanding. Departure Departure Time of Disposition 1720 Disposition DC Home or Self Care(routine) Clinical Impression Primary Impression: Fracture of distal phalanx of finger of right hand Condition STABLE Referrals Karyn Fontenot MD (Family) Call tomorrow and schedule FU appointment. Could require relief for that fingernail or ortho referral. Return immediately for new or worsening symptoms. Patient Instructions DI for Finger Fracture Additional Instructions * Rest * ice 15-20 mins 3-4 times a day * Splint and meredith taping. Be sure not too tight but not too loose either * Elevate as discussed as much as possible to help reduce swelling and therefore , pain * Ibuprofen every 6 hours as needed for pain and inflammation. If you need something more, you can take tylenol every 4 hours as needed as long as your primary care provider has told you it is ok to take both. Follow up with Dr. Fontenot. Call him tomorrow and schedule FU appt. Might need trepination for right nail to get relief if worsening or referral to ortho if no improvement. Discharge Counseling Counseled pt/family regarding diagnosis, test results, medications/RX, home care, follow up needs Prescriptions Current Visit Scripts No Known Home Medications at [id number]
[2016-12-10 17:26] VITALS: BP 114/74
--- NOTE | 2016-12-10 17:57 | RADIOLOGY REPORT PS360 ---
HAND-RT 3 VIEWS Ordering Physician: ALISHA MATHEWS APRN Patient Age: 26 years: Male HISTORY: PINKY HIT BY BASEBALL LAST NIGHT TECHNIQUE: Fifth finger hit by softball one day ago pain fifth finger FINDINGS There is a transverse nondisplaced fracture through the base of distal tuft of distal phalanx, fifth finger. This is best seen on the oblique view. The PIP and DIP joints appear intact at the fifth finger. There is mild relative hyperextension positioning MCP joint noted on the oblique view. Minor deformity at neck of fifth met carpal text suspect there is likely benign old fracture of the neck/head of fifth metatarsal contributing to this mild deformity appearance. Clinical correlation required. The fifth metacarpal currently intact with no acute findings. . Bones well mineralized. Joint spaces well-maintained. Other fingers unremarkable. IMPRESSION: Transverse nondisplaced fracture towards tip of distal phalanx fifth finger
== END 2016-12-10 17:26 | disposition home or self-care (01) ==
LOC: UTC 15:54
DX: S62.636A Displaced fracture of distal phalanx of right little finger, initial encounter for closed fracture (principal); W21.03XA Struck by baseball, initial encounter